=== PATIENT | female | born 1965 | race Caucasian/White ===

== ENCOUNTER 2017-03-12 10:06 | Emergency (ER) | payer BC, OTHER ==
[2017-03-12 10:21] VITALS: BP 131/79
--- NOTE | 2017-03-12 11:26 | EDM.PDOC ---
ED HPI GENERAL MEDICAL PROBLEM - General Chief Complaint: Lower Extremity Injury/Pain Stated Complaint: RT ANKLE INJURY Time Seen by Provider: 03/12/17 10:31 Source of Information: Reports: Patient History Limitations: Reports: No Limitations - History of Present Illness INITIAL COMMENTS - FREE TEXT/NARRATIVE: The patient inverted her ankle when stepping off of the curb. She also fell and landed on her back. She did not hit her head. She has no neck pain or back pain. She can mildly step on her foot. Onset: Sudden Duration: Minutes: Location: Reports: Lower Extremity, Right (ankle) Quality: Reports: Sharp Severity: Moderate Improves with: Reports: None Worsens with: Reports: Movement Context: Reports: Activity (Inverted her ankle stepping off of the curb) Associated Symptoms: Reports: No Other Symptoms Right Ankle Pain Score (Numeric/FACES): 9 - Related Data Allergies Allergy/AdvReac Type Severity Reaction Status Date / Time amoxicillin Allergy Hives Verified 03/12/17 10:15 Home Meds: Home Meds Hydrocodone/Acetaminophen [Hydrocodon-Acetaminophen 5-325] 1 - 2 each PO Q6HR PRN #20 tablet 03/12/17 [Rx] Past Medical History - Past Health History Medical/Surgical History: Denies Medical/Surgical History Gastrointestinal History: Reports: GERD - Past Surgical History Female Surgical History: Reports: Section, Oophorectomy Social & Family History - Tobacco Use Smoking Status *Q: Never Smoker Second Hand Smoke Exposure: No - Caffeine Use Caffeine Use: Reports: Soda - Recreational Drug Use Recreational Drug Use: No Review of Systems - Review of Systems Review Of Systems: See Below Constitutional: Reports: No Symptoms Eyes: Reports: No Symptoms Ears: Reports: No Symptoms Nose: Reports: No Symptoms Mouth/Throat: Reports: No Symptoms Respiratory: Reports: No Symptoms Cardiovascular: Reports: No Symptoms GI/Abdominal: Reports: No Symptoms Genitourinary: Reports: No Symptoms Musculoskeletal: Reports: Other (Right lateral ankle tenderness and edema.) ED EXAM, GENERAL - Physical Exam Exam: See Below Exam Limited By: No Limitations General Appearance: Alert, No Apparent Distress Ears: Normal External Exam Nose: Normal Inspection Head: Atraumatic, Normocephalic Neck: Normal Inspection Respiratory/Chest: No Respiratory Distress Extremities: Other (Pain upon palpation to the right lateral malleolus with moderate edema. Good sensation and pulses distally.) Course - Vital Signs Last Recorded V/S: Last Vital Signs Temp 98.7 F 03/12/17 10:17 Pulse 77 03/12/17 10:17 Resp 12 03/12/17 10:17 BP 131/79 03/12/17 10:17 Pulse Ox 99 03/12/17 10:17 - Re-Assessments/Exams Free Text/Narrative Re-Assessment/Exam: 03/12/17 11:34 Her x-ray shows an old injury but nothing acute. I will give her an shannan wrap and crutches and have her follow up with PT. Departure - Departure Time of Disposition: 11:35 Disposition: Home, Self-Care 01 Condition: good Clinical Impression: Right ankle sprain Qualifiers: Encounter type: initial encounter Involved ligament of ankle: unspecified ligament Qualified Code(s): S93.401A - Sprain of unspecified ligament of right ankle, initial encounter - Discharge Information Prescriptions: Hydrocodone/Acetaminophen [Hydrocodon-Acetaminophen 5-325] 1 - 2 each PO Q6HR PRN #20 tablet PRN Reason: Pain Referrals: José Jose MD [Primary Care Provider] - 1 Week Forms: ED Department Discharge Additional Instructions: Ice your ankle for 15 minutes every other hour while awake for 2 days. Elevate your ankle above your heart as much as you can for 2 days. Wear the shannan wrap for comfort. Use the crutches as needed for a few days. Follow up with physical therapy.
--- NOTE | 2017-03-12 11:31 | CR ---
Right ankle: Four views of the right ankle were obtained. Comparison: Previous right ankle exam of 07/06/13. Plantar spur is seen. This spur has slightly increased in size from prior exam. Ankle mortise is symmetric. Small calcification is seen off the lateral ankle most likely due to old injury. I do not see a definite acute fracture. Soft tissue swelling is seen. Impression: 1. No definite acute abnormality is seen. 2. Calcification off the lateral ankle most likely due to old injury. 3. Other incidental findings. Diagnostic code #2
== END 2017-03-12 12:05 | disposition home or self-care (01) ==
LOC: JD.ED 10:06
DX: S93.401A Sprain of unspecified ligament of right ankle, initial encounter (principal); K21.9 Gastro-esophageal reflux disease without esophagitis; Z88.1 Allergy status to other antibiotic agents; Z90.721 Acquired absence of ovaries, unilateral; X50.1XXA Overexertion from prolonged static or awkward postures, initial encounter
CPT/HCPCS: 73610-26-RT; 73610-RT; 99283; 99284

== ENCOUNTER 2017-11-05 09:08 | Emergency (ER) | payer BC, OTHER ==
[2017-11-05 09:17] VITALS: BP 159/85
[2017-11-05] MEDS ORDERED: Metoclopramide 10 MG/2 ML SDV IVPUSH ONE (09:26)
[2017-11-05] MEDS ORDERED: HYDROmorphone 0.5 MG/0.5 ML Syringe IVPUSH ONE (09:26)
[2017-11-05] MEDS ORDERED: LORazepam 2 MG/ML MDV IVPUSH ONE (09:28)
[2017-11-05] MEDS ORDERED: Ketorolac 30 MG/ML SDV IVPUSH SCH (09:30)
[2017-11-05] MEDS ORDERED: Sodium Chloride 0.9% 1,000 ML IV SCH (09:30)
--- NOTE | 2017-11-05 09:30 | EDM.PDOC ---
ED HPI GENERAL MEDICAL PROBLEM - General Chief Complaint: Chest Pain Stated Complaint: CHEST PAIN Time Seen by Provider: 11/05/17 09:25 Source of Information: Reports: Patient History Limitations: Reports: No Limitations - History of Present Illness INITIAL COMMENTS - FREE TEXT/NARRATIVE: 52-year-old female presents to the ED with acute onset of severe left precordial sharp stabbing chest pains. She cannot take a deep breath due to the severity of pain. She's been coughing proximal his blood for several days and particularly last night. This morning while at work she started to develop sharp stabbing chest pains left precordium that made her stop work and come to the ED. She is extremely apprehensive and tearful and holding clutching her left anterior chest. She has no known history of coronary disease. Is febrile on examination. She states cough is nonproductive. Coughing makes the pain much worse. Pain seems to be strongly pleuritic in nature. Denies any hemoptysis. No recent travel history or risk for DVT. O2 sats are 100% on room air. Onset: Today Onset Date: 11/05/17 Onset Time: 08:30 Duration: Minutes: Location: Reports: Chest (Left precordial upper chest.) Quality: Reports: Ache, Sharp, Stabbing Severity: Severe Improves with: Reports: None (Jessie 10) Worsens with: Reports: Other (Breathing deeply coughing), Movement Context: Denies: Activity, Exercise, Lifting, Sick Contact, Trauma, Other Associated Symptoms: Reports: Chest Pain, Cough, Fever/Chills, Loss of Appetite , Malaise, Shortness of Breath. 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: Other (see below) Middle Chest Pain Score (Numeric/FACES): 8 - Related Data Allergies Allergy/AdvReac Type Severity Reaction Status Date / Time amoxicillin Allergy Hives Verified 11/05/17 09:17 Home Meds: Home Meds Chlorpheniramine/HYDROcodone [Tussionex Pennkinetic] 5 ml PO Q12H PRN #60 ml [Rx] Levofloxacin [Levaquin] 500 mg PO DAILY #7 tab 11/05/17 [Rx] Past Medical History - Past Health History Medical/Surgical History: Denies Medical/Surgical History Gastrointestinal History: Reports: GERD - Past Surgical History Female Surgical History: Reports: Section, Oophorectomy Social & Family History - Tobacco Use Smoking Status *Q: Never Smoker Second Hand Smoke Exposure: No - Caffeine Use Caffeine Use: Reports: Soda - Recreational Drug Use Recreational Drug Use: No - Living Situation & Occupation Living situation: Reports: Occupation: Employed ED ROS GENERAL - Review of Systems Review Of Systems: See Below Constitutional: Reports: Fever, Malaise, Weakness, Fatigue, Decreased Appetite, Weight Loss, Other (Hoarse voice). Denies: Chills HEENT: Reports: Throat Pain (Sore throat) Respiratory: Reports: Shortness of Breath, Pleuritic Chest Pain, Cough. Denies : Wheezing, Sputum, Hemoptysis (Nonproductive) Cardiovascular: Reports: Chest Pain. Denies: Blood Pressure Problem (See history of present illness), Claudication, Dyspnea on Exertion, Edema, Lightheadedness, Orthopnea, Palpitations Endocrine: Reports: No Symptoms GI/Abdominal: Reports: No Symptoms : Reports: No Symptoms Musculoskeletal: Reports: No Symptoms Skin: Reports: No Symptoms Neurological: Reports: No Symptoms Psychiatric: Reports: No Symptoms Hematologic/Lymphatic: Reports: No Symptoms Immunologic: Reports: No Symptoms ED EXAM, GENERAL - Physical Exam Exam: See Below Exam Limited By: No Limitations General Appearance: Alert, WD/WN, Moderate Distress (Very apprehensive clutching her left anterior chest. Tearful.) Eye Exam: Bilateral Eye: Normal Inspection Ears: Normal TMs Throat/Mouth: Normal Inspection, Normal Lips, Normal Oropharynx Head: Atraumatic, Normocephalic Neck: Normal Inspection, Supple, Non-Tender, Full Range of Motion. No: Lymphadenopathy (R) Respiratory/Chest: Respiratory Distress, Other (Chest wall found to be very tender particularly fourth ribs bilaterally. Worse in the left 34 and 5 in the midclavicular line as compared to the right.). No: Decreased Breath Sounds, Crackles, Rales, Wheezing Cardiovascular: Normal Peripheral Pulses, Regular Rate, Rhythm, No Edema, No Murmur Peripheral Pulses: 3+: Posterior Tibial (L), Posterior Tibial (R), Dorsalis Pedis (L), Dorsalis Pedis (R) GI/Abdominal: Normal Bowel Sounds, Soft, Non-Tender, No Organomegaly Extremities: Normal Inspection, Normal Range of Motion, Non-Tender, No Pedal Edema Neurological: Alert, Oriented, CN II-XII Intact, Normal Cognition, Normal Gait Psychiatric: Anxious, Tearful Skin Exam: Warm, Dry, Intact, Normal Color, No Rash EKG INTERPRETATION EKG Date: 11/05/17 Time: 09:15 Rhythm: NSR Rate (Beats/Min): 85 [place]: Normal P-Wave: Present QRS: Other (There is a Q-wave in V1 and near Q waves V2 V3 suggestive of possible anteroseptal myocardial infarction.) ST-T: Normal QT: Normal EKG Interpretation Comments: Borderline ECG. Course - Vital Signs Last Recorded V/S: Last Vital Signs Temp 36.1 C 11/05/17 09:13 Pulse 95 11/05/17 09:13 Resp 19 11/05/17 09:13 BP 159/85 H 11/05/17 09:13 Pulse Ox 100 11/05/17 09:13 - Orders/Labs/Meds Orders: Active Orders 24 hr Category Date Time Status EKG Documentation Completion [RC] STAT Care 11/05/17 09:27 Active Ketorolac [Toradol] Med 11/05/17 09:30 Active 30 mg IVPUSH ONETIME Sodium Chloride 0.9% [Normal Saline] 1,000 ml Med 11/05/17 09:30 Active IV ASDIRECTED Medication Orders Sodium Chloride (Normal Saline) 1,000 mls @ 250 mls/hr IV ASDIRECTED EVER Last Admin: 11/05/17 09:48 Dose: 250 mls/hr Ketorolac Tromethamine (Toradol) 30 mg IVPUSH ONETIME EVER Last Admin: 11/05/17 09:47 Dose: 30 mg Labs: Laboratory Tests 11/05/17 11/05/17 Range/Units 09:20 09:20 WBC 12.39 H (3.98-10.04) K/mm3 RBC 5.51 H (3.98-5.22) M/mm3 Hgb 15.7 (11.2-15.7) gm/L Hct 46.8 H (34.1-44.9) % MCV 84.9 (79.4-94.8) fl MCH 28.5 (25.6-32.2) pg MCHC 33.5 (32.2-35.5) g/dl RDW Std Deviation 43.5 (36.4-46.3) fL Plt Count 418 H (182-369) K/mm3 MPV 10.2 (9.4-12.3) fl Neutrophils % (Manual) 80 H (40-60) % Band Neutrophils % 1 (0-10) % Lymphocytes % (Manual) 18 L (20-40) % Atypical Lymphs % 0 % Monocytes % (Manual) 1 L (2-10) % Eosinophils % (Manual) 0 L (0.7-5.8) % Basophils % (Manual) 0 L (0.1-1.2) Platelet Estimate Adequate RBC Morph Comment Normal Sodium 140 (136-145) mEq/L Potassium 3.8 (3.5-5.1) mEq/L Chloride 103 (98-107) mEq/L Carbon Dioxide 25 (21-32) mEq/L Anion Gap 15.8 H (5-15) BUN 11 (7-18) mg/dL Creatinine 0.9 (0.55-1.02) mg/dL Est Cr Clr Drug Dosing 62.83 mL/min Estimated GFR (MDRD) > 60 (>60) mL/min BUN/Creatinine Ratio 12.2 L (14-18) Glucose 88 (74-106) mg/dL Calcium 9.9 (8.5-10.1) mg/dL Total Bilirubin 0.6 (0.2-1.0) mg/dL AST 30 (15-37) U/L ALT 42 (14-59) U/L Alkaline Phosphatase 167 H (46-116) U/L Troponin I < 0.017 (0.00-0.056) ng/mL C-Reactive Protein 6.6 H* (<1.0) mg/dL Total Protein 8.7 H (6.4-8.2) g/dl Albumin 4.2 (3.4-5.0) g/dl Globulin 4.5 gm/dL Albumin/Globulin Ratio 0.9 L (1-2) Meds: Medications Generic Name Dose Route Start Last Admin Trade Name Freq PRN Reason Stop Dose Admin Sodium Chloride 1,000 mls @ 250 mls/hr 11/05/17 09:30 11/05/17 09:48 Normal Saline IV 250 mls/hr ASDIRECTED EVER Administration Ketorolac Tromethamine 30 mg 11/05/17 09:30 11/05/17 09:47 Toradol IVPUSH 30 mg ONETIME EVER Administration Discontinued Medications Generic Name Dose Route Start Last Admin Trade Name Arabella PRN Reason Stop Dose Admin Hydromorphone HCl 0.5 mg 11/05/17 09:26 11/05/17 09:47 Dilaudid IVPUSH 11/05/17 09:27 0.5 mg ONETIME ONE Administration Levofloxacin/Dextrose 500 mg/ 100 mls @ 100 mls/hr 11/05/17 11:08 11/05/17 11 :26 Premix IV 11/05/17 12:07 100 mls/hr ONETIME ONE Administration Lorazepam 0.5 mg 11/05/17 09:28 11/05/17 09:48 Ativan IVPUSH 11/05/17 09:29 0.5 mg ONETIME ONE Administration Methylprednisolone Sodium Succinate 125 mg 11/05/17 11:11 11/05/17 11:25 Solu-Medrol IVPUSH 11/05/17 11:12 125 mg ONETIME ONE Administration Metoclopramide HCl 7.5 mg 11/05/17 09:26 11/05/17 09:47 Reglan IVPUSH 11/05/17 09:27 7.5 mg ONETIME ONE Administration - Radiology Interpretation Free Text/Narrative:: 52-year-old female presents to the ED with acute onset of severe left precordial chest pain that is very strongly sharp and stabbing and pleuritic. She's been ill with upper respiratory tract infection for the last several days with paroxysmal nonproductive cough. Denies any hemoptysis. She has a very hoarse voice. She is slightly warm to palpation clinically. She is very tearful and clutching her left anterior chest. Pain is well localized to the anterior chest wall particularly third fourth and fifth ribs left precordial midline chest. Similarly mild pain on fourth and fifth ribs on the right side. Lungs are clear. Heart was sinus ECG shows no signs of ischemia. Plan 1 view chest x- ray. IV will be saline 250 mils per hour. Given Toradol 30 mg IV with Dilaudid 0.5 mg IV for pain relief. Reglan 7.5 mg IV for nausea relief and Ativan 0.5 mg IV for anxiety relief. Influenza screen also ordered. CBC differential troponin and CRP ordered as well. - Re-Assessments/Exams Free Text/Narrative Re-Assessment/Exam: 11/05/17 10:30: Chest x-ray done portably is within normal limits. There is very faint infiltrate in the right inferior lobe possible mild early pulmonary fibrosis pattern. Her pain is markedly improved. She's been able to relax and to sleep a little bit at this time. 11/05/17 11:00 White count is elevated at 12.39 with a 80% neutrophils and 1% band pattern. Hemoglobin is 15.7 with hematocrit of 46.8. Platelets are mildly elevated at 418,000. Sodium is 140 with a potassium of 3.8. Chloride was 103 with a bicarbonate 25. Anion gap is 15.8. B1 is 11 with a creatinine of 0.9. GFR is greater than 60. Glucose was 88. Calcium is 9.9. Liver function is normal. Alk phosphatase slightly elevated 167. Troponin I is less than 0.017 C- reactive protein was 6.6 suggesting an infective process. Influenza screen was negative. 11/05/17 11:12 clinically the patient still has some pleuritic left upper anterior chest pain with deep breathing. Her markers are suggestive of an underlying bronchitis as the x-ray does not show any pneumonia. I'm going to therefore give her Levaquin 500 mg IV. Also Solu-Medrol 125 mg IV for further relief of pleuritic chest pain. I'll be to discharge her home on Levaquin 500 mg once daily for another 7 days and Tussionex cough syrup 5 mils every 12 hours when necessary for cough relief. No will be given to excuse her from the work place for the next 3 days including today. Departure - Departure Time of Disposition: 12:16 Disposition: Home, Self-Care 01 Condition: Fair Clinical Impression: Pleurisy, Chest wall pain, Bronchitis Prescriptions: Chlorpheniramine/HYDROcodone [Tussionex Pennkinetic] 5 ml PO Q12H PRN #60 ml PRN Reason: cough relief Levofloxacin [Levaquin] 500 mg PO DAILY #7 tab Instructions: Chest Wall Pain, [id number], Pleurisy, [id number] Referrals: José Jose MD [Primary Care Provider] - Forms: ED Department Discharge, ED Return to Work/School Form Additional Instructions: Evaluation the emergency room today in regards to development of severe left upper anterior chest pain which was strongly pleuritic which means sharp and stabbing and worsened by breathing. This suggests inflammation of the chest wall and the inner lining called the pleura. Associated low-grade fever with upper respiratory tract infection symptoms for the last 3-4 days. Very hoarse voice. Associated sore throat from coughing so much. Chest x-ray was normal with no signs of pneumonia. However markers reveal an elevated white blood cell count suggesting infection and markers for infection were also elevated. You're therefore given the first dose of antibiotic Levaquin 500 milligrams intravenously in the ED for suspect bronchitis that has not yet turned into pneumonia. Treatment at home will be to continue anti-inflammatory and fever management with Motrin 600 mg every 6 hours as needed. Tussionex cough syrup 5 mils every 12 hours as needed for cough relief. Plan on taking it a good hour before bed as it takes a good hour to work. Antibiotic be Levaquin 500 milligrams once daily for another 7 days. Would be due at noon tomorrow. Off work today tomorrow and the next day due to current illness. - My Orders Last 24 Hours: My Active Orders 11/05/17 09:27 EKG Documentation Completion [RC] STAT 11/05/17 09:30 Ketorolac [Toradol] 30 mg IVPUSH ONETIME Sodium Chloride 0.9% [Normal Saline] 1,000 ml IV ASDIRECTED - Assessment/Plan Last 24 Hours: My Active Orders 11/05/17 09:27 EKG Documentation Completion [RC] STAT 11/05/17 09:30 Ketorolac [Toradol] 30 mg IVPUSH ONETIME Sodium Chloride 0.9% [Normal Saline] 1,000 ml IV ASDIRECTED
--- NOTE | 2017-11-05 10:28 | CR ---
Chest: Portable view of the chest was obtained. Comparison: Prior chest x-ray of 11/18/16. Heart size and mediastinum are normal. Lungs are clear. Bony structures are grossly intact. Impression: 1. Nothing acute is identified on portable chest x-ray. Diagnostic code #1
[2017-11-05] MEDS ORDERED: Levofloxacin/Dextrose 5%-Water 500 MG in Premix Bag 1 BAG IV ONE (11:08)
[2017-11-05] MEDS ORDERED: methylPREDNISolone Sodium Succinate 125 MG/2 ML SDV IVPUSH ONE (11:11)
== END 2017-11-05 12:34 | disposition home or self-care (01) ==
LOC: JD.ED 09:08
DX: R09.1 Pleurisy (principal); J40 Bronchitis, not specified as acute or chronic; Z88.1 Allergy status to other antibiotic agents
CPT/HCPCS: 36415; 71045; 80053; 84484; 85025; 86140; 87804; 93005; 96361; 96365; 96375; 99285; J1170; J1885; J1956; J2060; J2765; J2930; J7040; 93010

== ENCOUNTER 2019-06-17 07:31 | Emergency (ER) | payer BC, OTHER ==
[2019-06-17 07:40] VITALS: BP 138/81; PULSE 87
--- NOTE | 2019-06-17 07:51 | EDM.PDOC ---
ED HPI GENERAL MEDICAL PROBLEM - General Chief Complaint: Chest Pain Stated Complaint: RIGHT SIDE PAIN, CHEST PAIN Time Seen by Provider: 06/17/19 07:51 - History of Present Illness INITIAL COMMENTS - FREE TEXT/NARRATIVE: 54-year-old female presents with chest pain. This pain basically started in her right arm yesterday over 24 hours ago. It has migrated toward the central portion of her chest. She has minimal left arm discomfort. She's not had a cough. No prior history of coronary artery disease. She does not smoke. The pain is fairly constant but she has some sharp twinges on the right side. She also has some right leg discomfort. Middle Chest Pain Score (Numeric/FACES): 8 - Related Data Allergies Allergy/AdvReac Type Severity Reaction Status Date / Time amoxicillin Allergy Hives Verified 06/17/19 07:37 Home Meds: Home Meds Acetaminophen/HYDROcodone [Letona 325-5 MG] 1 - 2 tab PO Q6H PRN #20 tablet 06/17 [Rx] Past Medical History - Past Health History Medical/Surgical History: Denies Medical/Surgical History Gastrointestinal History: Reports: GERD - Past Surgical History Female Surgical History: Reports: Section, Oophorectomy Social & Family History - Tobacco Use Smoking Status *Q: Never Smoker - Caffeine Use Caffeine Use: Reports: Soda - Recreational Drug Use Recreational Drug Use: No - Living Situation & Occupation Living situation: Reports: Occupation: Employed ED ROS GENERAL - Review of Systems Review Of Systems: See Below Constitutional: Reports: No Symptoms HEENT: Reports: No Symptoms Respiratory: Reports: Pleuritic Chest Pain. Denies: Shortness of Breath, Cough , Sputum, Hemoptysis Cardiovascular: Reports: Chest Pain. Denies: Dyspnea on Exertion, Edema, Lightheadedness Endocrine: Reports: No Symptoms GI/Abdominal: Reports: No Symptoms Musculoskeletal: Reports: Arm Pain, Leg Pain, Other (And chest wall pain) Skin: Reports: No Symptoms Neurological: Denies: Confusion, Headache Psychiatric: Reports: Anxiety Hematologic/Lymphatic: Reports: No Symptoms Immunologic: Reports: No Symptoms ED EXAM, GENERAL - Physical Exam Exam: See Below Exam Limited By: No Limitations General Appearance: Anxious Head: Atraumatic, Normocephalic Neck: Normal Inspection, Supple, Non-Tender, Full Range of Motion. No: Lymphadenopathy (L), Lymphadenopathy (R) Respiratory/Chest: No Respiratory Distress, Lungs Clear, Other (She has significant chest wall discomfort much worse on the right compared to left the way to the stethoscope causes her to flinch severely.). No: Chest Non-Tender Cardiovascular: Regular Rate, Rhythm, No Edema, No Murmur, Other (Her chest wall is very tender just awaited the stethoscope causes her flinch and rear back.) GI/Abdominal: Normal Bowel Sounds, Soft, Non-Tender Back Exam: Normal Inspection, Other (Palpation the upper back is tender worse on the right side no midline or vertebral tenderness). No: CVA Tenderness (L), CVA Tenderness (R) Extremities: Other (Palpation of the right upper extremity is exquisitely tender normal pulses normal sensation is palpation of the soft tissue causes severe discomfort) Neurological: Alert, Oriented, Normal Cognition, Other (She is a little anxious) EKG INTERPRETATION EKG Date: 06/17/19 Rhythm: NSR [place]: Normal P-Wave: Present QRS: Other (Normal QRSs with the exception of possible cues more likely late transition with no upward R wave in V1 V2 or V3 prominent V4 [address]-T: Other (Nonspecific nondiagnostic elevation in lead 3) Comparison: No Change (No significant change from November 05, 2017) EKG Interpretation Comments: Borderline EKG Course - Vital Signs Last Recorded V/S: Last Vital Signs Temp 36.1 C 06/17/19 07:38 Pulse 87 06/17/19 07:38 Resp 16 06/17/19 07:38 BP 138/81 06/17/19 07:38 Pulse Ox 100 06/17/19 07:38 - Orders/Labs/Meds Orders: Active Orders 24 hr Category Date Time Status EKG Documentation Completion [RC] STAT Care 06/17/19 08:02 Active Chest 1V Frontal [CR] Stat Exams 06/17/19 08:15 Taken Labs: Laboratory Tests 06/17/19 06/17/19 06/17/19 Range/Units 08:18 08:18 08:18 WBC 4.75 (3.98-10.04) K/mm3 RBC 5.05 (3.98-5.22) M/mm3 Hgb 14.0 D (11.2-15.7) gm/L Hct 42.6 (34.1-44.9) % MCV 84.4 (79.4-94.8) fl MCH 27.7 (25.6-32.2) pg MCHC 32.9 (32.2-35.5) g/dl RDW Std Deviation 43.0 (36.4-46.3) fL Plt Count 352 (182-369) K/mm3 MPV 10.5 (9.4-12.3) fl Neutrophils % (Manual) 56 (40-60) % Band Neutrophils % 0 (0-10) % Lymphocytes % (Manual) 35 (20-40) % Atypical Lymphs % 0 % Monocytes % (Manual) 8 (2-10) % Eosinophils % (Manual) 1 (0.7-5.8) % Basophils % (Manual) 0 L (0.1-1.2) Platelet Estimate Adequate RBC Morph Comment Normal D-Dimer, Quantitative 0.20 (0.19-0.50) mg/L Sodium 142 (136-145) mEq/L Potassium 3.8 (3.5-5.1) mEq/L Chloride 107 (98-107) mEq/L Carbon Dioxide 24 (21-32) mEq/L Anion Gap 14.8 (5-15) BUN 15 (7-18) mg/dL Creatinine 0.9 (0.55-1.02) mg/dL Est Cr Clr Drug Dosing 64.30 mL/min Estimated GFR (MDRD) > 60 (>60) mL/min BUN/Creatinine Ratio 16.7 (14-18) Glucose 75 (74-106) mg/dL Calcium 9.8 (8.5-10.1) mg/dL Total Bilirubin 0.6 (0.2-1.0) mg/dL AST 9 L (15-37) U/L ALT 22 (14-59) U/L Alkaline Phosphatase 142 H (46-116) U/L Creatine Kinase (26-192) U/L Troponin I < 0.017 (0.00-0.056) ng/mL C-Reactive Protein (<1.0) mg/dL Total Protein 7.1 (6.4-8.2) g/dl Albumin 3.9 (3.4-5.0) g/dl Globulin 3.2 gm/dL Albumin/Globulin Ratio 1.2 (1-2) 06/17/19 06/17/19 Range/Units 08:18 08:18 WBC (3.98-10.04) K/mm3 RBC (3.98-5.22) M/mm3 Hgb (11.2-15.7) gm/L Hct (34.1-44.9) % MCV (79.4-94.8) fl MCH (25.6-32.2) pg MCHC (32.2-35.5) g/dl RDW Std Deviation (36.4-46.3) fL Plt Count (182-369) K/mm3 MPV (9.4-12.3) fl Neutrophils % (Manual) (40-60) % Band Neutrophils % (0-10) % Lymphocytes % (Manual) (20-40) % Atypical Lymphs % % Monocytes % (Manual) (2-10) % Eosinophils % (Manual) (0.7-5.8) % Basophils % (Manual) (0.1-1.2) Platelet Estimate RBC Morph Comment D-Dimer, Quantitative (0.19-0.50) mg/L Sodium (136-145) mEq/L Potassium (3.5-5.1) mEq/L Chloride (98-107) mEq/L Carbon Dioxide (21-32) mEq/L Anion Gap (5-15) BUN (7-18) mg/dL Creatinine (0.55-1.02) mg/dL Est Cr Clr Drug Dosing mL/min Estimated GFR (MDRD) (>60) mL/min BUN/Creatinine Ratio (14-18) Glucose (74-106) mg/dL Calcium (8.5-10.1) mg/dL Total Bilirubin (0.2-1.0) mg/dL AST (15-37) U/L ALT (14-59) U/L Alkaline Phosphatase (46-116) U/L Creatine Kinase 95 (26-192) U/L Troponin I (0.00-0.056) ng/mL C-Reactive Protein 0.3 (<1.0) mg/dL Total Protein (6.4-8.2) g/dl Albumin (3.4-5.0) g/dl Globulin gm/dL Albumin/Globulin Ratio (1-2) Meds: Medications Discontinued Medications Generic Name Dose Route Start Last Admin Trade Name Freq PRN Reason Stop Dose Admin Fentanyl 50 mcg 06/17/19 08:04 06/17/19 08:19 Sublimaze IVPUSH 06/17/19 08:05 50 mcg ONETIME ONE Administration Lorazepam 1 mg 06/17/19 08:38 06/17/19 09:01 Ativan IVPUSH 06/17/19 08:39 1 mg ONETIME ONE Administration - Re-Assessments/Exams Free Text/Narrative Re-Assessment/Exam: 06/17/19 08:52 Fentanyl 50 g did not help we'll try a milligram of Ativan. Chest x-ray shows no acute cardiopulmonary changes no obvious musculoskeletal abnormalities. 06/17/19 12:30 A she did better after receiving some Ativan she still hurts but much better than before. The cause of her myalgias is uncertain laboratory evaluation is essentially unremarkable CPKs normal troponin normal d-dimer normal. She has a some multiple extremities and her chest and on exam is hyperesthetic with touching and even using the stethoscope. I did discuss the patient's case with Dr. Souza will discharge with a few hydrocodone and she will be seen in the office on Friday. Departure - Departure Time of Disposition: 12:32 Disposition: Home, Self-Care 01 Clinical Impression: Myalgia Prescriptions: Acetaminophen/HYDROcodone [Letona 325-5 MG] 1 - 2 tab PO Q6H PRN #20 tablet PRN Reason: Pain Referrals: José Jose MD [Primary Care Provider] - Forms: ED Department Discharge Additional Instructions: Return to emergency room with any questions problems or worsening symptoms. Follow-up with Dr. Souza on Friday as we discussed. Use the pain medication as needed for the discomfort. Try ibuprofen or Aleve and see if this helps - My Orders Last 24 Hours: My Active Orders 06/17/19 08:02 EKG Documentation Completion [RC] STAT 06/17/19 08:15 Chest 1V Frontal [CR] Stat - Assessment/Plan Last 24 Hours: My Active Orders 06/17/19 08:02 EKG Documentation Completion [RC] STAT 06/17/19 08:15 Chest 1V Frontal [CR] Stat
[2019-06-17] MEDS ORDERED: fentaNYL 100 MCG/2 ML SDV IVPUSH ONE (08:04)
[2019-06-17] MEDS ORDERED: LORazepam 2 MG/ML SDV IVPUSH ONE (08:38)
--- NOTE | 2019-06-21 06:39 | CR ---
Chest: Portable view of the chest was obtained. Comparison: Prior chest x-ray of 11/05/17. Heart size and mediastinum are normal. Lungs are clear. Bony structures are grossly intact. Impression: 1. Nothing acute is appreciated on portable chest x-ray. Diagnostic code #1
== END 2019-06-17 12:45 | disposition home or self-care (01) ==
LOC: JD.ED 07:31
DX: M79.10 Myalgia, unspecified site (principal); R07.89 Other chest pain; Z88.1 Allergy status to other antibiotic agents
CPT/HCPCS: 36415; 71045; 80053; 82550; 84484; 85007; 85027; 85379; 86140; 93005; 96374; 96375; 99285; J2060; J3010

== ENCOUNTER 2019-06-18 07:50 | Emergency (ER) | payer BC ==
[2019-06-18 08:03] VITALS: BP 114/98; PULSE 103
[2019-06-18] MEDS ORDERED: fentaNYL 100 MCG/2 ML SDV IVPUSH ONE (08:04)
[2019-06-18] MEDS ORDERED: fentaNYL 100 MCG/2 ML SDV ONE (08:06)
[2019-06-18] MEDS ORDERED: Sodium Chloride 0.9% 10 ML Syringe FLUSH PRN (08:07)
[2019-06-18] MEDS ORDERED: Iopamidol 755 Mg/ML 100 ML Bottle IVPUSH ONE (08:07)
[2019-06-18] MEDS ORDERED: Sodium Chloride 0.9% 100 ML IV SCH (08:15)
[2019-06-18] MEDS ORDERED: LORazepam 2 MG/ML SDV ONE (08:16)
--- NOTE | 2019-06-18 08:42 | EDM.PDOC ---
ED HPI GENERAL MEDICAL PROBLEM - General Chief Complaint: Chest Pain Stated Complaint: [facility] Time Seen by Provider: 06/18/19 07:50 - History of Present Illness INITIAL COMMENTS - FREE TEXT/NARRATIVE: 83-year-old female presents emergency room with arm chest pain. This is an atypical chest pain. The pain seems to be in the external musculature of the chest. Left forearm right proximal thigh and to a lesser degree left arm she does not describe chest pressure and her pain is not substernal is not associated with shortness of breath she is exquisitely tender when she has this even the weighted stethoscope been on her chest causes severe stress and anxiety. This started a couple of days ago I actually saw yesterday here for this really didn't have a solid diagnosis with her discussed the situation with her regular physician, Dr. Souza, and arranged Friday follow- up. Because this isn't making sense and 54-year-old woman with hyperesthetic responses to the external musculature on her arms and chest. She's had no fecal history of fevers or chills laboratory workup has been unremarkable no inflammatory markers elevated CPKs normal. Right Chest Pain Score (Numeric/FACES): 10 - Related Data Allergies Allergy/AdvReac Type Severity Reaction Status Date / Time amoxicillin Allergy Hives Verified 06/18/19 07:54 Home Meds: Home Meds Acetaminophen/HYDROcodone [[place] 325-5 MG] 1 - 2 tab PO Q6H PRN #20 tablet 06/17 [Rx] Meloxicam 15 mg PO Q24H #10 tablet 06/18/19 [Rx] Past Medical History - Past Health History Medical/Surgical History: Denies Medical/Surgical History Gastrointestinal History: Reports: GERD - Past Surgical History Female Surgical History: Reports: Section, Oophorectomy Social & Family History - Caffeine Use Caffeine Use: Reports: Soda - Living Situation & Occupation Living situation: Reports: Occupation: Employed ED ROS GENERAL - Review of Systems Review Of Systems: See Below Constitutional: Reports: No Symptoms HEENT: Reports: No Symptoms Respiratory: Reports: No Symptoms Cardiovascular: Reports: Chest Pain (External chest wall pain) Endocrine: Reports: No Symptoms GI/Abdominal: Denies: Constipation, Distension, Nausea, Vomiting Musculoskeletal: Reports: No Symptoms Skin: Reports: No Symptoms Neurological: Reports: No Symptoms Psychiatric: Reports: Anxiety (Think this is acute pain related). Denies: No Symptoms Hematologic/Lymphatic: Reports: No Symptoms ED EXAM, GENERAL - Physical Exam Exam: See Below Exam Limited By: Other (Patient is to sore to cooperate with the course of exam) General Appearance: Moderate Distress (From the discomfort) Eye Exam: Bilateral Eye: Normal Inspection Nose: Normal Inspection Throat/Mouth: Normal Inspection, Normal Lips, Normal Teeth, Normal Gums, Normal Oropharynx, Normal Voice, No Airway Compromise Head: Atraumatic, Normocephalic Neck: Normal Inspection, Supple, Non-Tender, Full Range of Motion. No: Lymphadenopathy (L), Lymphadenopathy (R) Respiratory/Chest: No Respiratory Distress, Lungs Clear, Normal Breath Sounds Cardiovascular: Regular Rate, Rhythm, No Edema, No Murmur Peripheral Pulses: 0: Posterior Tibial (L) GI/Abdominal: Normal Bowel Sounds, Soft, Non-Tender Back Exam: Normal Inspection. No: CVA Tenderness (L), CVA Tenderness (R) Extremities: Normal Inspection, No Pedal Edema Course - Vital Signs Last Recorded V/S: Last Vital Signs Temp 36.9 C 06/18/19 07:54 Pulse 103 H 06/18/19 07:54 Resp 24 H 06/18/19 07:54 BP 114/98 H 06/18/19 07:54 Pulse Ox 100 06/18/19 07:54 - Orders/Labs/Meds Orders: Active Orders 24 hr Category Date Time Status Ang Chest [CT] Stat Exams 06/18/19 08:03 Taken Sodium Chloride 0.9% [Normal Saline] 100 ml Med 06/18/19 08:15 Active IV ASDIRECTED Sodium Chloride 0.9% [Saline Flush] Med 06/18/19 08:07 Active 10 ml FLUSH ONETIME PRN Medication Orders Sodium Chloride (Normal Saline) 100 mls @ 75 mls/hr IV ASDIRECTED EVER Last Admin: 06/18/19 08:37 Dose: 75 mls/hr Sodium Chloride (Saline Flush) 10 ml FLUSH ONETIME PRN PRN Reason: IV FLUSH Last Admin: 06/18/19 08:37 Dose: 10 ml Labs: Laboratory Tests 06/18/19 06/18/19 06/18/19 Range/Units 08:14 08:14 08:14 WBC 4.78 (3.98-10.04) K/mm3 RBC 5.05 (3.98-5.22) M/mm3 Hgb 14.1 (11.2-15.7) gm/L Hct 42.9 (34.1-44.9) % MCV 85.0 (79.4-94.8) fl MCH 27.9 (25.6-32.2) pg MCHC 32.9 (32.2-35.5) g/dl RDW Std Deviation 43.2 (36.4-46.3) fL Plt Count 327 (182-369) K/mm3 MPV 10.8 (9.4-12.3) fl Neutrophils % (Manual) 72 H (40-60) % Band Neutrophils % 0 (0-10) % Lymphocytes % (Manual) 24 (20-40) % Atypical Lymphs % 0 % Immat Monocytes % (Man) 0 Monocytes % (Manual) 2 (2-10) % Eosinophils % (Manual) 2 (0.7-5.8) % Basophils % (Manual) 0 L (0.1-1.2) Metamyelocytes % 0 Myelocytes % 0 Promyelocytes % 0 Blast Cells % 0 Plasma Cell % (Manual) 0 Nucleated RBCs 0.0 % Platelet Estimate Adequate RBC Morph Comment Normal ESR 11 (0-20) mm/hr Sodium 139 (136-145) mEq/L Potassium 3.7 (3.5-5.1) mEq/L Chloride 106 (98-107) mEq/L Carbon Dioxide 20 L (21-32) mEq/L Anion Gap 16.7 H (5-15) BUN 15 (7-18) mg/dL Creatinine 1.1 H (0.55-1.02) mg/dL Est Cr Clr Drug Dosing 48.36 mL/min Estimated GFR (MDRD) 52 (>60) mL/min BUN/Creatinine Ratio 13.6 L (14-18) Glucose 146 H (74-106) mg/dL Calcium 9.8 (8.5-10.1) mg/dL Magnesium (1.8-2.4) mg/dl Total Bilirubin 0.7 (0.2-1.0) mg/dL AST 12 L (15-37) U/L ALT 20 (14-59) U/L Alkaline Phosphatase 140 H (46-116) U/L Creatine Kinase (26-192) U/L Troponin I < 0.017 (0.00-0.056) ng/mL C-Reactive Protein < 0.2 (<1.0) mg/dL Total Protein 7.2 (6.4-8.2) g/dl Albumin 3.8 (3.4-5.0) g/dl Globulin 3.4 gm/dL Albumin/Globulin Ratio 1.1 (1-2) 06/18/19 06/18/19 06/18/19 Range/Units 08:14 08:14 12:30 WBC (3.98-10.04) K/mm3 RBC (3.98-5.22) M/mm3 Hgb (11.2-15.7) gm/L Hct (34.1-44.9) % MCV (79.4-94.8) fl MCH (25.6-32.2) pg MCHC (32.2-35.5) g/dl RDW Std Deviation (36.4-46.3) fL Plt Count (182-369) K/mm3 MPV (9.4-12.3) fl Neutrophils % (Manual) (40-60) % Band Neutrophils % (0-10) % Lymphocytes % (Manual) (20-40) % Atypical Lymphs % % Immat Monocytes % (Man) Monocytes % (Manual) (2-10) % Eosinophils % (Manual) (0.7-5.8) % Basophils % (Manual) (0.1-1.2) Metamyelocytes % Myelocytes % Promyelocytes % Blast Cells % Plasma Cell % (Manual) Nucleated RBCs % Platelet Estimate RBC Morph Comment ESR (0-20) mm/hr Sodium (136-145) mEq/L Potassium (3.5-5.1) mEq/L Chloride (98-107) mEq/L Carbon Dioxide (21-32) mEq/L Anion Gap (5-15) BUN (7-18) mg/dL Creatinine (0.55-1.02) mg/dL Est Cr Clr Drug Dosing mL/min Estimated GFR (MDRD) (>60) mL/min BUN/Creatinine Ratio (14-18) Glucose (74-106) mg/dL Calcium (8.5-10.1) mg/dL Magnesium 2.0 (1.8-2.4) mg/dl Total Bilirubin (0.2-1.0) mg/dL AST (15-37) U/L ALT (14-59) U/L Alkaline Phosphatase (46-116) U/L Creatine Kinase 72 (26-192) U/L Troponin I < 0.017 (0.00-0.056) ng/mL C-Reactive Protein (<1.0) mg/dL Total Protein (6.4-8.2) g/dl Albumin (3.4-5.0) g/dl Globulin gm/dL Albumin/Globulin Ratio (1-2) Meds: Medications Generic Name Dose Route Start Last Admin Trade Name Freq PRN Reason Stop Dose Admin Sodium Chloride 100 mls @ 75 mls/hr 06/18/19 08:15 06/18/19 08:37 Normal Saline IV 75 mls/hr ASDIRECTED EVER Administration Sodium Chloride 10 ml 06/18/19 08:07 06/18/19 08:37 Saline Flush FLUSH 10 ml ONETIME PRN Administration IV FLUSH Discontinued Medications Generic Name Dose Route Start Last Admin Trade Name Freq PRN Reason Stop Dose Admin Fentanyl 100 mcg 06/18/19 08:04 06/18/19 08:12 Sublimaze IVPUSH 06/18/19 08:05 100 mcg ONETIME ONE Administration Fentanyl Confirm 06/18/19 08:06 06/18/19 08:13 Sublimaze Administered 06/18/19 08:07 Not Given Dose 100 mcg .ROUTE .STK-MED ONE Lactated Ringer's 1,000 mls @ 999 mls/hr 06/18/19 10:24 06/18/19 10:31 Ringers, Lactated IV 06/18/19 11:24 999 mls/hr .BOLUS ONE Administration Lactated Ringer's 1,000 mls @ 999 mls/hr 06/18/19 11:46 06/18/19 12:03 Ringers, Lactated IV 06/18/19 12:46 999 mls/hr .BOLUS ONE Administration Iopamidol 100 ml 06/18/19 08:07 06/18/19 08:36 Isovue-370 (76%) IVPUSH 06/18/19 08:08 100 ml ONETIME ONE Administration Ketorolac Tromethamine 15 mg 06/18/19 09:30 06/18/19 09:57 Toradol IVPUSH 06/18/19 09:31 15 mg ONETIME ONE Administration Lorazepam Confirm 06/18/19 08:16 06/18/19 08:44 Ativan Administered 06/18/19 08:17 Not Given Dose 2 mg .ROUTE .STK-MED ONE Lorazepam 1 mg 06/18/19 08:43 06/18/19 08:45 Ativan IVPUSH 06/18/19 08:44 1 mg ONETIME ONE Administration - Re-Assessments/Exams Free Text/Narrative Re-Assessment/Exam: 06/18/19 11:47 Labs reviewed CTA unremarkable she is a little dry magnesium okay she received a liter of LR this seems to help a little bit given a second liter check a second troponin and she still having some vague chest discomfort she still has quite a bit of discomfort with palpation over the soft tissue over the anterior chest. Palpation of the near the muscles around the sternum cause the patient to flinch back and out of the way. 06/18/19 13:28 Patient received 2 L of fluid second troponin is negative patient thinks she can give this a try at home. Earlier in the day had a chance to discuss this with Dr. Cifuentes, hotel services sales representative at [employer] in [place], his recommendation was to start her on meloxicam 15 mg daily if that doesn't get her some long-term relief try gabapentin and possibly steroids. The patient has an appointment with Dr. Souza, this next week. Departure - Departure Time of Disposition: 13:34 Disposition: Home, Self-Care 01 Clinical Impression: Myalgia - Discharge Information Prescriptions: Meloxicam 15 mg PO Q24H #10 tablet Referrals: José Jose MD [Primary Care Provider] - Forms: ED Department Discharge Additional Instructions: Return to the emergency room with any questions problems worsening symptoms. Follow-up with Dr. Souza as scheduled. Start the meloxicam take one daily. Continue using her pain medication given to you yesterday and use as needed. - My Orders Last 24 Hours: My Active Orders 06/18/19 08:03 Ang Chest [CT] Stat 06/18/19 08:07 Sodium Chloride 0.9% [Saline Flush] 10 ml FLUSH ONETIME PRN 06/18/19 08:15 Sodium Chloride 0.9% [Normal Saline] 100 ml IV ASDIRECTED - Assessment/Plan Last 24 Hours: My Active Orders 06/18/19 08:03 Ang Chest [CT] Stat 06/18/19 08:07 Sodium Chloride 0.9% [Saline Flush] 10 ml FLUSH ONETIME PRN 06/18/19 08:15 Sodium Chloride 0.9% [Normal Saline] 100 ml IV ASDIRECTED
[2019-06-18] MEDS ORDERED: LORazepam 2 MG/ML SDV IVPUSH ONE (08:43)
[2019-06-18] MEDS ORDERED: Ketorolac 15 MG/ML SDV IVPUSH ONE (09:30)
[2019-06-18] MEDS ORDERED: Lactated Ringers 1,000 ML IV ONE ×2 (10:24→11:46)
--- NOTE | 2019-06-21 08:44 | CT ---
CT chest Technique: Multiple axial sections through the chest were obtained. Intravenous contrast was utilized. Study has been performed as a pulmonary angiogram protocol. Comparison: Prior CT chest exam of 11/18/16. Findings: Pulmonary arteries are well opacified. No filling defects are seen to indicate pulmonary embolism. Mediastinum and hilar region show no adenopathy. No axillary adenopathy is seen. No pericardial thickening is seen. Visualized upper abdominal structures show no discrete abnormality. Lungs show no acute parenchymal change. No pleural effusions are seen. No pneumothorax is seen. Bone window settings show no acute osseous abnormality. Mild degenerative change is scattered within the spine. Impression: 1. No findings of pulmonary embolism. 2. Other incidental findings. Nothing acute is seen on CT study of the chest. Diagnostic code #2 I agree with preliminary report from [facility], finalized on 06/18/19, 10:03 AM Central Time
== END 2019-06-18 14:17 | disposition home or self-care (01) ==
LOC: JD.ED 07:50
DX: M79.10 Myalgia, unspecified site (principal); Z88.1 Allergy status to other antibiotic agents
CPT/HCPCS: 36415; 71275; 80053; 82550; 83735; 84484; 85007; 85027; 85652; 86140; 96361; 96374; 96375; 99285; J1885; J2060; J3010; J7030; J7120; Q9967

== ENCOUNTER 2019-06-28 14:36 | Emergency (ER) | payer BC ==
[2019-06-28 14:50] VITALS: BP 134/108; PULSE 85
[2019-06-28] MEDS ORDERED: LORazepam 2 MG/ML SDV IVPUSH ONE ×2 (15:18→15:24)
[2019-06-28] MEDS ORDERED: Ketorolac 30 MG/ML SDV IVPUSH ONE (15:18)
[2019-06-28] MEDS ORDERED: Sodium Chloride 0.9% 1,000 ML IV ONE (15:18)
[2019-06-28] MEDS ORDERED: HYDROmorphone 0.5 MG/0.5 ML Syringe IVPUSH ONE (15:23)
[2019-06-28] MEDS ORDERED: Aspirin 81 MG Tab.Chew PO ONE (15:25)
--- NOTE | 2019-06-28 15:34 | EDM.PDOC ---
ED HPI GENERAL MEDICAL PROBLEM - General Chief Complaint: Chest Pain Stated Complaint: SOB Time Seen by Provider: 06/28/19 14:58 Source of Information: Reports: Patient History Limitations: Reports: Uncooperative - History of Present Illness INITIAL COMMENTS - FREE TEXT/NARRATIVE: Patient is a 54-year-old female who presents to the ED complaining of left anterior/lateral chest pain that started this morning approximately 9:00. Pain is sharp in nature worsened with palpation, taking deep breath, and movement. She was mildly diaphoretic with onset. Feels like she cannot take a deep breath since the pain is worse. She has noticed some n/t to her lips and fingertips with breathing fast that has since improved with admission to the ED. She's been evaluated twice in the ED department once here and once also at [facility] with diagnosis of musculoskeletal pain. Last evaluated in the ER on the in [place] and prescribed a muscle relaxer to which she has been taking and has since ran out. She also was seen by her PCP and placed on clonazepam for anxiety. She denies any vision changes, headache, back pain, abdominal pain, cough, hemoptysis, pain or swelling to her lower extremities, fever, and/or any additional complaints. 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: - Infectious Disease History Infectious Disease History: Reports: Chicken Pox, Measles, Mumps - Past Surgical History GI Surgical History: Reports: Appendectomy Female Surgical History: Reports: Section, Oophorectomy Social & Family History - Family History Family Medical History: Noncontributory - Tobacco Use Smoking Status *Q: Never Smoker Second Hand Smoke Exposure: No - Caffeine Use Caffeine Use: Reports: Soda - Recreational Drug Use Recreational Drug Use: No - Living Situation & Occupation Living situation: Reports: Occupation: Employed ED ROS GENERAL - Review of Systems Review Of Systems: See Below Constitutional: Denies: Fever, Chills, Malaise, Weakness, Fatigue, Night Sweats , Decreased Appetite Respiratory: Reports: Shortness of Breath, Pleuritic Chest Pain. Denies: Wheezing, Cough, Sputum, Hemoptysis Cardiovascular: Reports: Chest Pain, Palpitations. Denies: Blood Pressure Problem, Dyspnea on Exertion, Lightheadedness, Orthopnea, PND, Syncope GI/Abdominal: Reports: No Symptoms : Reports: No Symptoms Musculoskeletal: Reports: No Symptoms Neurological: Reports: No Symptoms Psychiatric: Reports: Anxiety ED EXAM, GENERAL - Physical Exam Exam: See Below Exam Limited By: No Limitations General Appearance: Alert, WD/WN, Anxious, Moderate Distress Eye Exam: Bilateral Eye: Normal Inspection Ears: Hearing Grossly Normal Nose: Normal Inspection Throat/Mouth: Normal Inspection, Normal Oropharynx, Normal Voice, No Airway Compromise Head: Atraumatic, Normocephalic Neck: Normal Inspection, Supple, Non-Tender, Full Range of Motion Respiratory/Chest: No Respiratory Distress, Lungs Clear, Normal Breath Sounds, No Accessory Muscle Use, Other (Tenderness along the sternal border and along the left lateral chest increased with palpation. No bony abnormalities, ecchymosis, swelling, rash present.) Cardiovascular: Normal Peripheral Pulses, Regular Rate, Rhythm, No Murmur Peripheral Pulses: 2+: Radial (L), Radial (R) GI/Abdominal: Normal Bowel Sounds, Soft, Non-Tender, No Organomegaly, No Distention Back Exam: Normal Inspection, Full Range of Motion. No: CVA Tenderness (L), CVA Tenderness (R) Extremities: Normal Inspection, Normal Range of Motion, Non-Tender, No Pedal Edema Neurological: Alert, Oriented, CN II-XII Intact, Normal Cognition, No Motor/ Sensory Deficits Psychiatric: Normal Affect, Normal Mood Skin Exam: Warm, Dry, Intact, Normal Color Course - Vital Signs Last Recorded V/S: Last Vital Signs Temp 97.2 F 06/28/19 14:48 Pulse 85 06/28/19 14:48 Resp 23 H 06/28/19 14:48 BP 134/108 H 06/28/19 14:48 Pulse Ox 100 06/28/19 14:48 - Orders/Labs/Meds Orders: Active Orders 24 hr Category Date Time Status EKG 12 Lead [EKG Documentation Completion] [RC] STAT Care 06/28/19 15:30 Active Labs: Laboratory Tests 06/28/19 06/28/19 06/28/19 Range/Units 15:00 15:00 15:00 WBC 6.64 (3.98-10.04) K/mm3 RBC 4.76 (3.98-5.22) M/mm3 Hgb 13.4 (11.2-15.7) gm/dl Hct 39.5 (34.1-44.9) % MCV 83.0 (79.4-94.8) fl MCH 28.2 (25.6-32.2) pg MCHC 33.9 (32.2-35.5) g/dl RDW Std Deviation 41.0 (36.4-46.3) fL Plt Count 340 (182-369) K/mm3 MPV 11.0 (9.4-12.3) fl Neutrophils % (Manual) 70 H (40-60) % Band Neutrophils % 0 (0-10) % Lymphocytes % (Manual) 26 (20-40) % Atypical Lymphs % 0 % Monocytes % (Manual) 4 (2-10) % Eosinophils % (Manual) 0 L (0.7-5.8) % Basophils % (Manual) 0 L (0.1-1.2) Platelet Estimate Adequate RBC Morph Comment Normal PT 10.8 (9.7-12.0) SECONDS INR 0.99 APTT 24 (22-31) SECONDS D-Dimer, Quantitative 0.33 (0.19-0.50) mg/L Sodium 142 (136-145) mEq/L Potassium 3.7 (3.5-5.1) mEq/L Chloride 108 H (98-107) mEq/L Carbon Dioxide 22 (21-32) mEq/L Anion Gap 15.7 H (5-15) BUN 20 H (7-18) mg/dL Creatinine 0.8 (0.55-1.02) mg/dL Est Cr Clr Drug Dosing 66.50 mL/min Estimated GFR (MDRD) > 60 (>60) mL/min BUN/Creatinine Ratio 25.0 H (14-18) Glucose 100 (74-106) mg/dL Calcium 10.2 H (8.5-10.1) mg/dL Total Bilirubin 0.5 (0.2-1.0) mg/dL AST 16 (15-37) U/L ALT 27 (14-59) U/L Alkaline Phosphatase 144 H (46-116) U/L Troponin I < 0.017 (0.00-0.056) ng/mL C-Reactive Protein 0.2 (<1.0) mg/dL Total Protein 7.4 (6.4-8.2) g/dl Albumin 4.0 (3.4-5.0) g/dl Globulin 3.4 gm/dL Albumin/Globulin Ratio 1.2 (1-2) Meds: Medications Discontinued Medications Generic Name Dose Route Start Last Admin Trade Name Arabella PRN Reason Stop Dose Admin Aspirin 324 mg 06/28/19 15:25 06/28/19 15:33 Aspirin PO 06/28/19 15:26 324 mg ONETIME ONE Administration Hydromorphone HCl 0.5 mg 06/28/19 15:23 06/28/19 15:36 Dilaudid IVPUSH 06/28/19 15:24 0.5 mg ONETIME ONE Administration Sodium Chloride 1,000 mls @ 250 mls/hr 06/28/19 15:18 06/28/19 15:33 Normal Saline IV 06/28/19 19:17 250 mls/hr ONETIME ONE Administration Ketorolac Tromethamine 30 mg 06/28/19 15:18 06/28/19 15:34 Toradol IVPUSH 06/28/19 15:19 30 mg ONETIME ONE Administration Lorazepam 1 mg 06/28/19 15:18 Ativan IVPUSH 06/28/19 15:19 ONETIME ONE Lorazepam 0.5 mg 06/28/19 15:24 06/28/19 15:38 Ativan IVPUSH 06/28/19 15:25 0.5 mg ONETIME ONE Administration - Re-Assessments/Exams Free Text/Narrative Re-Assessment/Exam: On exam patient is holding her left chest. She appears to be very anxious and has increased respiratory rate. Complains of sharp pain to left chest reproduced with taking a deep breath, movement, and also with palpation. She does have some numbness to her lips into her fingers. She's been evaluated in the ER here and also in the ED at [facility] for similar complaints. She' s been advised the cause of discomfort is chest wall in origin and was prescribed muscle relaxers. Blood pressure 134/108, heart rate 85, temperature is 97.2, rest rate 23, O2 sats 100%. Initial labs and studies will include: CBC, chem 14, CRP, d-dimer, coag studies , troponin, UA, drug screen, and chest x-ray one view. EKG: Sinus rhythm at a rate of 76, RI interval 193, QTC 422, Q waves V1 through V3, old anterior septal IL. Mild left atrial hypertrophy. Diffuse early repolarization pattern. T wave inverted in aVL. Chest x-ray impression: No acute findings noted. This was reviewed with Dr. Delaney. Did order ASA 324 mg by mouth, Dilaudid 0.5 mg IVP, and Ativan 0.5 mg IVP. I suspect cause of discomfort is more muscle skeletal in nature. EKG was reviewed with previous EKG with changes noted. She is quite anxious and a bluish may have had a panic attack. Labs reviewed: CBC essentially normal. D-dimer 0.33. CRP indicated normal sodium and potassium. AG a 15.7, creatinine 0.8, calcium is 10.2 slightly elevated, troponin within normal limits, CRP normal. I suspect if this was related to her heart the troponin would be elevated since onset of pain has been >4hrs. Believe this is more likely muscle skeletal in nature. I did review [facility] ER visit note 06/22/2019. EKG showed no acute ischemic changes, blood work was unremarkable including troponin and d-dimer. Believed pain was more likely muscle skeletal since pain was reproducible with pushing on her chest. Provided a prescription for Norflex. Discussed patient with Dr. Delaney. Does not believe admission to [facility] with stress test in the a.m. is required. No serial troponins as suspected due to time frame of symptoms. Suggested changes on EKG are not worrisome and stress test with echo and cardiac consultation can take place on outpatient basis. 1710 Reassessment, patient resting comfortably in bed. Discussed results of labs, EKG, chest x-ray with the patient. She is ready to be discharged home. She will followup with PCP for reevaluation and cardiac stress test. Prescription for flexeril has been provided. Return precautions discussed with patient. Discharge instructions as documented. Departure - Departure Time of Disposition: 17:13 Disposition: Home, Self-Care 01 Condition: Good Clinical Impression: Atypical chest pain, Chest wall pain Prescriptions: Cyclobenzaprine [Flexeril] 10 mg PO TID PRN #15 tab PRN Reason: Pain Instructions: Chest Wall Pain Referrals: José Jose MD [Primary Care Provider] - Forms: ED Department Discharge, ED Return to Work/School Form Additional Instructions: Followup with PCP in the next 3 to 5 days for reevaluation and to schedule cardiac stress test, echocardiogram, and cardiology evaluation. Take the flexeril as prescribed for chest wall pain. May use aleve and tylenol for pain as well. Do not drive today since receiving a sedative medication. Return to the E.D. for any new or worsening symptoms. Do not drive while taking the flexeril. - My Orders Last 24 Hours: My Active Orders 06/28/19 15:30 EKG 12 Lead [EKG Documentation Completion] [RC] STAT - Assessment/Plan Last 24 Hours: My Active Orders 06/28/19 15:30 EKG 12 Lead [EKG Documentation Completion] [RC] STAT
--- NOTE | 2019-06-28 17:49 | CR ---
Chest: Portable view of the chest was obtained. Comparison: Prior chest x-ray of 06/17/19. Heart size is felt to be within normal limits for portable technique. Tortuous thoracic aorta is seen. Lungs are clear with no acute parenchymal change. Bony structures are grossly intact. Impression: 1. Nothing acute is seen on portable chest x-ray. Diagnostic code #1
== END 2019-06-28 17:43 | disposition home or self-care (01) ==
LOC: JD.ED 14:36
DX: R07.89 Other chest pain (principal); Z88.1 Allergy status to other antibiotic agents; Z79.899 Other long term (current) drug therapy; Z90.49 Acquired absence of other specified parts of digestive tract
CPT/HCPCS: 36415; 71045; 80053; 84484; 85007; 85027; 85379; 85610; 85730; 86140; 93005; 96361; 96374; 96375; 99285; A9270; J1170; J1885; J2060; J7040

== ENCOUNTER 2019-07-05 12:27 | Emergency (ER) | payer BC ==
[2019-07-05 12:39] VITALS: BP 149/110; PULSE 73
[2019-07-05] MEDS ORDERED: Sodium Chloride 0.9% 10 ML Syringe FLUSH PRN (13:22)
[2019-07-05] MEDS ORDERED: Acetaminophen/HYDROcodone 325-5 MG Tab PO ONE (14:43)
[2019-07-05] MEDS ORDERED: Ketorolac 30 MG/ML SDV IM ONE (14:43)
--- NOTE | 2019-07-05 15:25 | EDM.PDOC ---
ED HPI GENERAL MEDICAL PROBLEM - General Chief Complaint: Chest Pain Stated Complaint: SWEATS, DIZZY,SOB Time Seen by Provider: 07/05/19 12:41 Source of Information: Reports: Patient, RN Notes Reviewed - History of Present Illness INITIAL COMMENTS - FREE TEXT/NARRATIVE: 54-year-old female comes in with anterior chest discomfort, dizziness that is been going on for several weeks. She's had several visits to this ED and also had a visit to [facility] ED about a week ago. She has not been coughing. There's been no fever or chills. He states the pain is worse with deep breathing and certain types of motion. She had been prescribed medication in [place] about a week ago to take twice a day. 8 she is now out of that medication. She does not know what that was. 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: - Infectious Disease History Infectious Disease History: Reports: Chicken Pox, Measles, Mumps - Past Surgical History GI Surgical History: Reports: Appendectomy Female Surgical History: Reports: Section, Oophorectomy Social & Family History - Family History Family Medical History: Noncontributory - Tobacco Use Smoking Status *Q: Never Smoker - Caffeine Use Caffeine Use: Reports: Soda - Recreational Drug Use Recreational Drug Use: No - Living Situation & Occupation Living situation: Reports: Occupation: Employed ED ROS GENERAL - Review of Systems Review Of Systems: See Below Constitutional: Denies: Fever, Chills, Diaphoresis HEENT: Denies: Sinus Problem, Throat Pain Respiratory: Reports: Shortness of Breath, Cough (occasional). Denies: Sputum Cardiovascular: Reports: Chest Pain, Lightheadedness, Palpitations GI/Abdominal: Denies: Abdominal Pain, Hematochezia, Melena, Nausea, Vomiting Musculoskeletal: Denies: Neck Pain, Shoulder Pain, Arm Pain, Back Pain Skin: Reports: No Symptoms Neurological: Reports: Dizziness. Denies: Trouble Speaking, Difficulty Walking , Weakness (no focal weakness) ED EXAM, GENERAL - Physical Exam Exam: See Below General Appearance: Alert, Anxious (Extremely anxious) Eye Exam: Bilateral Eye: PERRL Throat/Mouth: Normal Inspection, Normal Oropharynx Head: Atraumatic. No: Facial Swelling Neck: Supple, Full Range of Motion Respiratory/Chest: Lungs Clear, Respiratory Distress (tachypnea, hyperventilating at time of initial exam), Other (Severe tenderness sternal border). No: Rales, Rhonchi, Wheezing GI/Abdominal: Soft, Non-Tender. No: Guarding Back Exam: No: CVA Tenderness (L), CVA Tenderness (R) Extremities: No: Leg Pain, Increased Warmth, Redness Neurological: Alert, No Motor/Sensory Deficits Skin Exam: Warm, Dry, Normal Color EKG INTERPRETATION EKG Date: 07/05/19 Rhythm: NSR [place]: Normal P-Wave: Present QRS: Other (q waves v2) ST-T: Depressed (slight st depression V3-v5) Course - Vital Signs Last Recorded V/S: Last Vital Signs Temp 97.2 F 07/05/19 12:36 Pulse 73 07/05/19 12:36 Resp 33 H 07/05/19 12:36 BP 149/110 H 07/05/19 12:36 Pulse Ox 100 07/05/19 12:36 - Orders/Labs/Meds Labs: Laboratory Tests 07/05/19 07/05/19 07/05/19 Range/Units 13:50 13:50 13:50 WBC (3.98-10.04) K/mm3 RBC (3.98-5.22) M/mm3 Hgb (11.2-15.7) gm/dl Hct (34.1-44.9) % MCV (79.4-94.8) fl MCH (25.6-32.2) pg MCHC (32.2-35.5) g/dl RDW Std Deviation (36.4-46.3) fL Plt Count (182-369) K/mm3 MPV (9.4-12.3) fl Neut % (Auto) (34.0-71.1) % Lymph % (Auto) (19.3-51.7) % [place] % (Auto) (4.7-12.5) % Eos % (Auto) (0.7-5.8) Baso % (Auto) (0.1-1.2) % Neut # (Auto) (1.56-6.13) K/mm3 Lymph # (Auto) (1.18-3.74) K/mm3 [place] # (Auto) (0.24-0.36) K/mm3 Eos # (Auto) (0.04-0.36) K/mm3 Baso # (Auto) (0.01-0.08) K/mm3 Manual Slide Review ESR (0-20) mm/hr D-Dimer, Quantitative (0.19-0.50) mg/L Sodium 142 (136-145) mEq/L Potassium 3.5 (3.5-5.1) mEq/L Chloride 105 (98-107) mEq/L Carbon Dioxide 24 (21-32) mEq/L Anion Gap 16.5 H (5-15) BUN 13 (7-18) mg/dL Creatinine 0.8 (0.55-1.02) mg/dL Est Cr Clr Drug Dosing 66.50 mL/min Estimated GFR (MDRD) > 60 (>60) mL/min BUN/Creatinine Ratio 16.3 (14-18) Glucose 83 (74-106) mg/dL Calcium 10.3 H (8.5-10.1) mg/dL Total Bilirubin 0.8 (0.2-1.0) mg/dL AST 16 (15-37) U/L ALT 26 (14-59) U/L Alkaline Phosphatase 153 H (46-116) U/L Troponin I < 0.017 (0.00-0.056) ng/mL C-Reactive Protein < 0.2 (<1.0) mg/dL Total Protein 7.7 (6.4-8.2) g/dl Albumin 4.3 (3.4-5.0) g/dl Globulin 3.4 gm/dL Albumin/Globulin Ratio 1.3 (1-2) TSH 3rd Generation 1.094 (0.358-3.74) uIU/mL 07/05/19 07/05/19 07/05/19 Range/Units 13:54 13:54 13:59 WBC 7.63 (3.98-10.04) K/mm3 RBC 5.11 (3.98-5.22) M/mm3 Hgb 14.1 (11.2-15.7) gm/dl Hct 42.3 (34.1-44.9) % MCV 82.8 (79.4-94.8) fl MCH 27.6 (25.6-32.2) pg MCHC 33.3 (32.2-35.5) g/dl RDW Std Deviation 41.2 (36.4-46.3) fL Plt Count 367 (182-369) K/mm3 MPV 10.2 (9.4-12.3) fl Neut % (Auto) 60.8 (34.0-71.1) % Lymph % (Auto) 32.0 (19.3-51.7) % [place] % (Auto) 6.3 (4.7-12.5) % Eos % (Auto) 0.3 L (0.7-5.8) Baso % (Auto) 0.5 (0.1-1.2) % Neut # (Auto) 4.64 (1.56-6.13) K/mm3 Lymph # (Auto) 2.44 (1.18-3.74) K/mm3 [place] # (Auto) 0.48 H (0.24-0.36) K/mm3 Eos # (Auto) 0.02 L (0.04-0.36) K/mm3 Baso # (Auto) 0.04 (0.01-0.08) K/mm3 Manual Slide Review Normal smear ESR 15 (0-20) mm/hr D-Dimer, Quantitative 0.23 (0.19-0.50) mg/L Sodium (136-145) mEq/L Potassium (3.5-5.1) mEq/L Chloride (98-107) mEq/L Carbon Dioxide (21-32) mEq/L Anion Gap (5-15) BUN (7-18) mg/dL Creatinine (0.55-1.02) mg/dL Est Cr Clr Drug Dosing mL/min Estimated GFR (MDRD) (>60) mL/min BUN/Creatinine Ratio (14-18) Glucose (74-106) mg/dL Calcium (8.5-10.1) mg/dL Total Bilirubin (0.2-1.0) mg/dL AST (15-37) U/L ALT (14-59) U/L Alkaline Phosphatase (46-116) U/L Troponin I (0.00-0.056) ng/mL C-Reactive Protein (<1.0) mg/dL Total Protein (6.4-8.2) g/dl Albumin (3.4-5.0) g/dl Globulin gm/dL Albumin/Globulin Ratio (1-2) TSH 3rd Generation (0.358-3.74) uIU/mL Meds: Medications Discontinued Medications Generic Name Dose Route Start Last Admin Trade Name Freq PRN Reason Stop Dose Admin Hydrocodone Bitart/Acetaminophen 1 tab 07/05/19 14:43 07/05/19 14:54 [place] 325-5 Mg PO 07/05/19 14:44 1 tab ONETIME ONE Administration Ketorolac Tromethamine 30 mg 07/05/19 14:43 07/05/19 14:53 Toradol IM 07/05/19 14:44 30 mg ONETIME ONE Administration Lorazepam 1 mg 07/05/19 15:35 07/05/19 15:56 Ativan PO 07/05/19 15:36 1 mg ONETIME ONE Administration Sodium Chloride 10 ml 07/05/19 13:22 Saline Flush FLUSH ASDIRECTED PRN Keep Vein Open - Re-Assessments/Exams Free Text/Narrative Re-Assessment/Exam: 07/15/19 13:35 labs including trop., D Dimer, tsh normal. CXR nl, EKG no acute changes. She does have chest wall tenderness L sternal border, have given ativan tyleno and torodol which has given some relief. Discharge instr. as documented. Departure - Departure Time of Disposition: 16:27 Disposition: Home, Self-Care 01 Condition: Fair Clinical Impression: Chest wall pain Prescriptions: Naproxen [Naprosyn] 500 mg PO Q12HR #14 tab LORazepam [Ativan] 1 mg PO BID #10 tab Instructions: Chest Wall Pain, [id number] Referrals: José Jose MD [Primary Care Provider] - Forms: ED Department Discharge Additional Instructions: Naprosyn 500 mg twice daily for pain and inflammation, and 8 ice and heat to left front area of your chest for pain relief as needed, Ativan 1 mg twice daily for muscle and nerve relaxation, is a sedating medication, do not drive when taking this medication. Follow-up with Dr. Souza later this week or early next week for recheck, further evaluation and treatment as needed. If unable to get in to see Dr. Souza in a timely fashion you may see one of the other clinic providers as needed.
[2019-07-05] MEDS ORDERED: LORazepam 1 MG Tab PO ONE (15:35)
--- NOTE | 2019-07-06 08:59 | CR ---
Chest: Portable view of the chest was obtained. Comparison: Previous chest x-ray of 06/28/19. Heart size and mediastinum are normal. Lungs are clear. Bony structures are grossly intact. Impression: 1. Nothing acute is seen on portable chest x-ray. Diagnostic code #1
== END 2019-07-05 16:45 | disposition home or self-care (01) ==
LOC: JD.ED 12:27
DX: R07.89 Other chest pain (principal); Z88.1 Allergy status to other antibiotic agents; Z90.49 Acquired absence of other specified parts of digestive tract
CPT/HCPCS: 36415; 71045; 80053; 84443; 84484; 85025; 85379; 85652; 86140; 93005; 96372; 99285; A9270; J1885; 93010; 99284

== ENCOUNTER 2019-12-21 07:30 | Emergency (ER) | payer BC ==
[2019-12-21] MEDS ORDERED: Sodium Chloride 0.9% 10 ML Syringe FLUSH PRN (07:48)
[2019-12-21] MEDS ORDERED: Aspirin 81 MG Tab.Chew PO ONE (07:48)
[2019-12-21] MEDS ORDERED: Albuterol/Ipratropium 3.0-0.5 MG/3 ML Neb Soln NEB ONE (09:21)
--- NOTE | 2019-12-21 09:52 | EDM.PDOC ---
ED HPI GENERAL MEDICAL PROBLEM - General Chief Complaint: Chest Pain Stated Complaint: SOB Time Seen by Provider: 12/21/19 08:10 Source of Information: Reports: Patient History Limitations: Reports: No Limitations - History of Present Illness INITIAL COMMENTS - FREE TEXT/NARRATIVE: The patient presents with shortness of breath. She also has a cough and congestion. This has been going on since Friday. She has no measurable fever. She has some mile chest tightness. She has no abdominal pain, nausea or vomiting. She was told a few weeks ago she had some narrowing of arteries in her heart. She is not clear on how Shaheen decided that. She did not have an angiogram according to her. She has no history of DVT or PE. The patient was hyperventilating when she came in. Onset: Gradual Duration: Day(s): (5) Location: Reports: Chest Quality: Reports: Other (tightness) Severity: Mild Improves with: Reports: None Worsens with: Reports: None Associated Symptoms: Reports: Chest Pain, Cough, Shortness of Breath. Denies: Fever/Chills, Headaches, Nausea/Vomiting Chest Pain Score (Numeric/FACES): 10 - Related Data Allergies Allergy/AdvReac Type Severity Reaction Status Date / Time amoxicillin Allergy Hives Verified 12/21/19 07:47 Home Meds: Home Meds Albuterol [Proventil HFA] 2 puff INH Q4H PRN #1 inhaler 12/21/19 [Rx] Azithromycin [Zithromax] 250 mg PO DAILY #6 tab 12/21/19 [Rx] Codeine/Promethazine [Phenergan with Codeine] 5 - 10 ml PO Q6HR PRN #300 ml [Rx] Past Medical History - Past Health History Medical/Surgical History: Denies Medical/Surgical History Cardiovascular History: Reports: Other (See Below) Other Cardiovascular History: fluid around heart and inflammed. 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: GERD [employer] LIGHT History: Reports: - Infectious Disease History Infectious Disease History: Reports: Chicken Pox, Measles, Mumps - Past Surgical History GI Surgical History: Reports: Appendectomy Female Surgical History: Reports: Section, Oophorectomy Social & Family History - Family History Family Medical History: Noncontributory - Tobacco Use Smoking Status *Q: Never Smoker - Caffeine Use Caffeine Use: Reports: Soda - Recreational Drug Use Recreational Drug Use: No - Living Situation & Occupation Living situation: Reports: Occupation: Employed ED ROS GENERAL - Review of Systems Review Of Systems: See Below Constitutional: Reports: No Symptoms HEENT: Reports: Other (Congestion) Respiratory: Reports: Shortness of Breath, Cough Cardiovascular: Reports: Chest Pain Endocrine: Reports: No Symptoms GI/Abdominal: Reports: No Symptoms : Reports: No Symptoms Musculoskeletal: Reports: No Symptoms ED EXAM, GENERAL - Physical Exam Exam: See Below Exam Limited By: No Limitations General Appearance: Alert, No Apparent Distress Ears: Normal External Exam Nose: Normal Inspection Head: Atraumatic, Normocephalic Neck: Normal Inspection Respiratory/Chest: No Respiratory Distress, Lungs Clear, Normal Breath Sounds Cardiovascular: Regular Rate, Rhythm, No Edema, No Murmur GI/Abdominal: Normal Bowel Sounds, Soft, Non-Tender, No Organomegaly Back Exam: Normal Inspection Extremities: Normal Inspection EKG INTERPRETATION EKG Date: 12/21/19 Time: 07:38 Rhythm: NSR Rate (Beats/Min): 83 [place]: Normal P-Wave: Present QRS: Normal ST-T: Elevated (Normal early repol) QT: Normal Course - Vital Signs Last Recorded V/S: Last Vital Signs Temp 98.0 F 12/21/19 07:30 Pulse 89 12/21/19 07:30 Resp 16 12/21/19 07:30 BP 154/91 H 12/21/19 07:30 Pulse Ox 100 12/21/19 07:30 - Orders/Labs/Meds Orders: Active Orders 24 hr Category Date Time Status EKG 12 Lead [EKG Documentation Completion] [RC] STAT Care 12/21/19 07:55 Active RT Aerosol Therapy [RC] ASDIRECTED Care 12/21/19 09:22 Active Chest 1V Frontal [CR] Stat Exams 12/21/19 07:47 Taken Sodium Chloride 0.9% [Saline Flush] Med 12/21/19 07:48 Active 10 ml FLUSH ASDIRECTED PRN Isolation [COMM] Routine Oth 12/21/19 08:15 Ordered Saline Lock Insert [OM.PC] Routine Oth 12/21/19 07:48 Ordered Medication Orders Sodium Chloride (Saline Flush) 10 ml FLUSH ASDIRECTED PRN PRN Reason: Keep Vein Open Last Admin: 12/21/19 07:40 Dose: 10 ml Labs: Laboratory Tests 12/21/19 12/21/19 12/21/19 Range/Units 07:40 07:40 07:40 WBC 6.80 (3.98-10.04) K/mm3 RBC 4.88 (3.98-5.22) M/mm3 Hgb 13.6 D (11.2-15.7) gm/dl Hct 41.3 (34.1-44.9) % MCV 84.6 (79.4-94.8) fl MCH 27.9 (25.6-32.2) pg MCHC 32.9 (32.2-35.5) g/dl RDW Std Deviation 42.7 (36.4-46.3) fL Plt Count 349 (182-369) K/mm3 MPV 10.4 (9.4-12.3) fl Neut % (Auto) 75.2 H (34.0-71.1) % Lymph % (Auto) 18.8 L (19.3-51.7) % Swisher % (Auto) 4.9 (4.7-12.5) % Eos % (Auto) 0.6 L (0.7-5.8) Baso % (Auto) 0.4 (0.1-1.2) % Neut # (Auto) 5.11 (1.56-6.13) K/mm3 Lymph # (Auto) 1.28 (1.18-3.74) K/mm3 Swisher # (Auto) 0.33 (0.24-0.36) K/mm3 Eos # (Auto) 0.04 (0.04-0.36) K/mm3 Baso # (Auto) 0.03 (0.01-0.08) K/mm3 D-Dimer, Quantitative 0.22 (0.19-0.50) mg/L Sodium 142 (136-145) mEq/L Potassium 3.2 L (3.5-5.1) mEq/L Chloride 105 (98-107) mEq/L Carbon Dioxide 20 L (21-32) mEq/L Anion Gap 20.2 H (5-15) BUN 14 (7-18) mg/dL Creatinine 1.1 H (0.55-1.02) mg/dL Est Cr Clr Drug Dosing 46.24 mL/min Estimated GFR (MDRD) 52 (>60) mL/min BUN/Creatinine Ratio 12.7 L (14-18) Glucose 179 H (74-106) mg/dL Calcium 9.5 (8.5-10.1) mg/dL Total Bilirubin 0.7 (0.2-1.0) mg/dL AST 14 L (15-37) U/L ALT 23 (14-59) U/L Alkaline Phosphatase 150 H (46-116) U/L CK-MB (CK-2) 1.3 (0-3.6) ng/ml Troponin I < 0.017 (0.00-0.056) ng/mL Total Protein 7.2 (6.4-8.2) g/dl Albumin 3.9 (3.4-5.0) g/dl Globulin 3.3 gm/dL Albumin/Globulin Ratio 1.2 (1-2) Meds: Medications Generic Name Dose Route Start Last Admin Trade Name Freq PRN Reason Stop Dose Admin Sodium Chloride 10 ml 12/21/19 07:48 12/21/19 07:40 Saline Flush FLUSH 10 ml ASDIRECTED PRN Administration Keep Vein Open Discontinued Medications Generic Name Dose Route Start Last Admin Trade Name Freq PRN Reason Stop Dose Admin Albuterol/Ipratropium 3 ml 12/21/19 09:21 12/21/19 09:30 Duoneb 3.0-0.5 Mg/3 Ml NEB 12/21/19 09:22 3 ml ONETIME ONE Administration Aspirin 324 mg 12/21/19 07:48 12/21/19 08:00 Aspirin PO 12/21/19 07:49 324 mg ONETIME ONE Administration - Re-Assessments/Exams Free Text/Narrative Re-Assessment/Exam: 12/21/19 09:52 I ordered an IV, labs, EKG, CXR, and aspirin. Her EKG shows a NSR with no acute changes. Her CXR looks good. Her CBC looks good. Her D-dimer is normal. Her K is a little low at 3.2. Her anion gap is elevated at 20.2. He creatinine is slightly elevated at 1.1. Her glucose is elevated at 179. Her alk phos is elevated at 150. Her troponin is normal. I did give her a breathing treatment to see if that did help. 12/21/19 09:58 Her influenza is negative. I feel she has bronchitis. I will get her on a z- blake, something for the cough and albuterol. Departure - Departure Time of Disposition: 10:00 Disposition: Home, Self-Care 01 Condition: Good Clinical Impression: Bronchitis - Discharge Information *PRESCRIPTION DRUG MONITORING PROGRAM REVIEWED*: No *COPY OF PRESCRIPTION DRUG MONITORING REPORT IN PATIENT DAIN: No Prescriptions: Codeine/Promethazine [Phenergan with Codeine] 5 - 10 ml PO Q6HR PRN #300 ml PRN Reason: Cough Albuterol [Proventil HFA] 2 puff INH Q4H PRN #1 inhaler PRN Reason: Shortness Of Breath Azithromycin [Zithromax] 250 mg PO DAILY #6 tab Referrals: José Jose MD [Primary Care Provider] - 1 Week Forms: ED Department Discharge, ED Return to Work/School Form Additional Instructions: Take the medication as prescribed. Take motrin or tylenol for fever or pain. Please return if you are worse. Sepsis Event Note - Evaluation Sepsis Screening Result: No Definite Risk - Focused Exam Vital Signs: Vital Signs Temp Pulse Resp BP Pulse Ox 12/21/19 07:30 98.0 F 89 16 154/91 H 100 Date Exam was Performed: 12/21/19 Time Exam was Performed: 09:58 - My Orders Last 24 Hours: My Active Orders 12/21/19 07:47 Chest 1V Frontal [CR] Stat 12/21/19 07:48 Sodium Chloride 0.9% [Saline Flush] 10 ml FLUSH ASDIRECTED PRN Saline Lock Insert [OM.PC] Routine 12/21/19 07:55 EKG 12 Lead [EKG Documentation Completion] [RC] STAT 12/21/19 08:15 Isolation [COMM] Routine 12/21/19 09:22 RT Aerosol Therapy [RC] ASDIRECTED - Assessment/Plan Last 24 Hours: My Active Orders 12/21/19 07:47 Chest 1V Frontal [CR] Stat 12/21/19 07:48 Sodium Chloride 0.9% [Saline Flush] 10 ml FLUSH ASDIRECTED PRN Saline Lock Insert [OM.PC] Routine 12/21/19 07:55 EKG 12 Lead [EKG Documentation Completion] [RC] STAT 12/21/19 08:15 Isolation [COMM] Routine 12/21/19 09:22 RT Aerosol Therapy [RC] ASDIRECTED
[2019-12-21 10:19] VITALS: BP 121/67; PULSE 72
--- NOTE | 2019-12-21 10:30 | CR ---
Chest: Portable view of the chest was obtained. Comparison: Prior chest x-ray of 08/19/19. Heart size and mediastinum are within normal limits for portable technique. No acute parenchymal change is appreciated. Bony structures are grossly intact. Impression: 1. Nothing acute is appreciated on portable chest x-ray. Diagnostic code #1 This report was dictated in [place] Standard Time
== END 2019-12-21 10:18 | disposition home or self-care (01) ==
LOC: JD.ED 07:30
DX: J40 Bronchitis, not specified as acute or chronic (principal); K21.9 Gastro-esophageal reflux disease without esophagitis; Z79.899 Other long term (current) drug therapy
CPT/HCPCS: 36415; 71045; 80053; 82553; 84484; 85025; 85379; 87804; 93005; 94640; 99285; A9270; J7620-GY

== ENCOUNTER 2020-03-13 09:58 | Emergency (ER) | payer BC, OTHER ==
[2020-03-13 10:08] VITALS: BP 111/85; PULSE 72
--- NOTE | 2020-03-13 10:33 | CR ---
Chest: Portable view of the chest was obtained. Comparison: Prior chest x-ray of 12/21/19. Heart size and mediastinum are normal. Lungs are clear with no acute parenchymal change. Bony structures are grossly intact. Impression: 1. Nothing acute is seen on portable chest x-ray. Diagnostic code #1 This report was dictated in MDT
[2020-03-13] MEDS ORDERED: HYDROmorphone 0.5 MG/0.5 ML Syringe IVPUSH ONE (10:37)
[2020-03-13] MEDS ORDERED: Metoclopramide 10 MG/2 ML SDV IVPUSH ONE (10:37)
[2020-03-13] MEDS ORDERED: LORazepam 2 MG/ML SDV IVPUSH ONE (10:40)
--- NOTE | 2020-03-13 10:43 | EDM.PDOC ---
ED HPI GENERAL MEDICAL PROBLEM - General Chief Complaint: Chest Pain Stated Complaint: CHEST PAIN Time Seen by Provider: 03/13/20 10:37 Source of Information: Reports: Patient History Limitations: Reports: No Limitations - History of Present Illness INITIAL COMMENTS - FREE TEXT/NARRATIVE: 54-year-old female presents to the ED with diffuse epigastric retrosternal chest pain radiating underneath her left breast to the mid axillary line. Pain is sharp and stabbing and worsens with any deep breathing at all. Even shallow breathing hurts. She states she developed a cough and minimal sputum production yesterday afternoon. She believes she has been running a low-grade fever. She has not expectorating any sputum. Appetite has been rather poor over the weekend. Patient did go to work this morning but had to quit because of the intensity of the pain. It was present very minimally and seem to have a waxing waning phenomenon starting about 0600 hrs. this morning. Over the last 2 hours it is become much more intense and constant. She has no chest wall injury. No known heart disease. No history of PE or DVT. Pain did become bad enough to make her of course very short of breath. Associated diaphoresis. She presented hyperventilating taking shallow respirations due to the intensity of the pain. Onset: Today Onset Date: 03/13/20 Onset Time: 06:00 (Had some mild retrosternal chest discomfort this morning.) Duration: Hour(s): Location: Reports: Chest (Lower retrosternal chest rating underneath the left breast to the mid axillary line left side) Quality: Reports: Pressure, Sharp, Stabbing Severity: Moderate (Pain is mostly pleuritic it out of 10) Improves with: Reports: Rest (Rest and very shallow breathing.) Worsens with: Reports: Other Context: Denies: Activity (With movement coughing or deep breathing), Exercise, Lifting, Sick Contact, Trauma Associated Symptoms: Reports: Chest Pain, Cough, Diaphoresis (The intensity of pain the last 2 hours), Fever/Chills (Is some fever and low-grade chills yesterday), Loss of Appetite, Malaise, Shortness of Breath. 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 (see below) (She did take some aspirin this morning for pain relief) Left Lower Chest Pain Score (Numeric/FACES): 6 - Related Data Allergies Allergy/AdvReac Type Severity Reaction Status Date / Time amoxicillin Allergy Hives Verified 03/13/20 10:08 Home Meds: Home Meds Albuterol [Proventil HFA] 2 puff INH Q4H PRN #1 inhaler 12/21/19 [Rx] Azithromycin [Zithromax] 250 mg PO DAILY #6 tab 12/21/19 [Rx] Codeine/Promethazine [Phenergan with Codeine] 5 - 10 ml PO Q6HR PRN #300 ml [Rx] Diclofenac Sodium [Voltaren] 50 mg PO TID #24 tab.ec 03/13/20 [Rx] Gabapentin [Neurontin] 300 mg PO BEDTIME #7 cap 03/13/20 [Rx] oxyCODONE HCl/Acetaminophen [Percocet 5-325 mg Tablet] 1 - 2 each PO Q4H PRN # 14 tablet 03/13/20 [Rx] predniSONE [Prednisone] 20 mg PO BID #12 tablet 03/13/20 [Rx] Past Medical History - Past Health History Medical/Surgical History: Denies Medical/Surgical History Cardiovascular History: Reports: Other (See Below) Other Cardiovascular History: fluid around heart and inflammed. 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: - Infectious Disease History Infectious Disease History: Reports: Chicken Pox, Measles, Mumps - Past Surgical History GI Surgical History: Reports: Appendectomy Female Surgical History: Reports: Section, Oophorectomy Social & Family History - Family History Family Medical History: Noncontributory - Tobacco Use Smoking Status *Q: Never Smoker - Caffeine Use Caffeine Use: Reports: Soda - Recreational Drug Use Recreational Drug Use: No - Living Situation & Occupation Living situation: Reports: Occupation: Employed ED ROS GENERAL - Review of Systems Review Of Systems: See Below Constitutional: Reports: Fever, Chills, Malaise, Fatigue, Decreased Appetite HEENT: Reports: No Symptoms Respiratory: Reports: Shortness of Breath, Pleuritic Chest Pain, Cough. Denies : Wheezing, Sputum, Hemoptysis Cardiovascular: Reports: Chest Pain, Lightheadedness. Denies: Blood Pressure Problem (History of present illness), Claudication, Dyspnea on Exertion, Edema ( Gets lightheaded from the intensity of the pain), Orthopnea, Palpitations Endocrine: Reports: No Symptoms GI/Abdominal: Reports: No Symptoms : Reports: No Symptoms Musculoskeletal: Reports: No Symptoms Skin: Reports: No Symptoms Neurological: Reports: Dizziness Psychiatric: Reports: No Symptoms Hematologic/Lymphatic: Reports: No Symptoms Immunologic: Reports: No Symptoms ED EXAM, GENERAL - Physical Exam Exam: See Below Exam Limited By: Respiratory Distress General Appearance: Alert, WD/WN, Moderate Distress, Other (Temperature is 37.1. Heart rate is 72 and sinus respiratory was 20 to 24/min with O2 sats of 100%. I.e. mild hyperventilation syndrome BP 111/85.) Eye Exam: Bilateral Eye: Normal Inspection, PERRL Ears: Normal TMs Throat/Mouth: Normal Inspection, Normal Lips, Normal Teeth, Normal Oropharynx Head: Atraumatic, Normocephalic Neck: Normal Inspection, Supple, Non-Tender, Full Range of Motion. No: Lymphadenopathy (L), Lymphadenopathy (R) Respiratory/Chest: Lungs Clear (Daughter tachypnea.), Respiratory Distress, Splinting (Splinting respirations and quite shallow rapid respirations.), Other (Chest wall is extremely tender on the right side at his fourth and fifth ribs midclavicular line on the left it is 2-6 on the midclavicular line. The fourth rib is the worst as is the fifth. It seems to be exquisitely tender to touch.) Cardiovascular: Normal Peripheral Pulses, Regular Rate, Rhythm, No Edema, No Gallop, No Murmur, No Rub Peripheral Pulses: 3+: Carotid (L), Carotid (R), Posterior Tibial (L), Posterior Tibial (R), Dorsalis Pedis (L), Dorsalis Pedis (R) GI/Abdominal: Normal Bowel Sounds, Soft, Non-Tender, No Organomegaly, No Abnormal Bruit, No Mass, Pelvis Stable, Other (Pfannenstiel incision lower abdomen from 2 C-sections. She is also had an appendectomy) Back Exam: Normal Inspection, Full Range of Motion, CVA Tenderness (L). No: CVA Tenderness (R), Decreased Range of Motion (Mild), Muscle Spasm Extremities: Normal Inspection, Normal Range of Motion, Non-Tender, No Pedal Edema Neurological: Alert, Oriented, CN II-XII Intact, Normal Cognition Psychiatric: Anxious Skin Exam: Warm, Dry, Intact, Normal Color, No Rash EKG INTERPRETATION EKG Date: 03/13/20 Time: 10:09 Rhythm: NSR Rate (Beats/Min): 72 [place]: Normal P-Wave: Present QRS: Normal ST-T: Other (Diffuse early repolarization pattern) QT: Normal EKG Interpretation Comments: Normal ECG. Course - Vital Signs Last Recorded V/S: Last Vital Signs Temp 37.1 C 03/13/20 10:06 Pulse 72 03/13/20 10:06 Resp 20 03/13/20 10:06 BP 111/85 03/13/20 10:06 Pulse Ox 100 03/13/20 10:06 - Orders/Labs/Meds Orders: Active Orders 24 hr Category Date Time Status EKG Documentation Completion [RC] ASDIRECTED Care 03/13/20 10:11 Active Dextrose 5%-0.9% NaCl [Dextrose 5%-Normal Saline] 1,000 Med 03/13/20 10:45 Active ml IV ASDIRECTED Ketorolac [Toradol] Med 03/13/20 10:45 Active 30 mg IVPUSH ONETIME EKG 12 Lead [EK] Stat Ther 03/13/20 10:10 Ordered Medication Orders Dextrose/Sodium Chloride (Dextrose 5%-Normal Saline) 1,000 mls @ 125 mls/hr IV ASDIRECTED EVER Last Admin: 03/13/20 11:02 Dose: 125 mls/hr Ketorolac Tromethamine (Toradol) 30 mg IVPUSH ONETIME EVER Last Admin: 03/13/20 11:00 Dose: 30 mg Labs: Laboratory Tests 03/13/20 03/13/20 03/13/20 Range/Units 10:15 10:15 10:15 WBC 5.87 (3.98-10.04) K/mm3 RBC 5.01 (3.98-5.22) M/mm3 Hgb 13.9 (11.2-15.7) gm/dl Hct 42.4 (34.1-44.9) % MCV 84.6 (79.4-94.8) fl MCH 27.7 (25.6-32.2) pg MCHC 32.8 (32.2-35.5) g/dl RDW Std Deviation 43.0 (36.4-46.3) fL Plt Count 366 (182-369) K/mm3 MPV 10.5 (9.4-12.3) fl Neut % (Auto) 68.7 (34.0-71.1) % Lymph % (Auto) 24.0 (19.3-51.7) % Dougherty % (Auto) 6.3 (4.7-12.5) % Eos % (Auto) 0.3 L (0.7-5.8) Baso % (Auto) 0.5 (0.1-1.2) % Neut # (Auto) 4.03 (1.56-6.13) K/mm3 Lymph # (Auto) 1.41 (1.18-3.74) K/mm3 Dougherty # (Auto) 0.37 H (0.24-0.36) K/mm3 Eos # (Auto) 0.02 L (0.04-0.36) K/mm3 Baso # (Auto) 0.03 (0.01-0.08) K/mm3 APTT (22-31) SECONDS D-Dimer, Quantitative 0.20 (0.19-0.50) mg/L Sodium 142 (136-145) mEq/L Potassium 3.7 (3.5-5.1) mEq/L Chloride 105 (98-107) mEq/L Carbon Dioxide 23 (21-32) mEq/L Anion Gap 17.7 H (5-15) BUN 13 (7-18) mg/dL Creatinine 0.9 (0.55-1.02) mg/dL Est Cr Clr Drug Dosing 63.96 mL/min Estimated GFR (MDRD) > 60 (>60) mL/min BUN/Creatinine Ratio 14.4 (14-18) Glucose 90 (74-106) mg/dL Calcium 9.9 (8.5-10.1) mg/dL Magnesium (1.8-2.4) mg/dl Total Bilirubin 0.6 (0.2-1.0) mg/dL AST 20 (15-37) U/L ALT 34 (14-59) U/L Alkaline Phosphatase 146 H (46-116) U/L CK-MB (CK-2) (0-3.6) ng/ml Troponin I < 0.017 (0.00-0.056) ng/mL C-Reactive Protein (<1.0) mg/dL Total Protein 7.6 (6.4-8.2) g/dl Albumin 4.1 (3.4-5.0) g/dl Globulin 3.5 gm/dL Albumin/Globulin Ratio 1.2 (1-2) 03/13/20 03/13/20 Range/Units 10:15 10:15 WBC (3.98-10.04) K/mm3 RBC (3.98-5.22) M/mm3 Hgb (11.2-15.7) gm/dl Hct (34.1-44.9) % MCV (79.4-94.8) fl MCH (25.6-32.2) pg MCHC (32.2-35.5) g/dl RDW Std Deviation (36.4-46.3) fL Plt Count (182-369) K/mm3 MPV (9.4-12.3) fl Neut % (Auto) (34.0-71.1) % Lymph % (Auto) (19.3-51.7) % Dougherty % (Auto) (4.7-12.5) % Eos % (Auto) (0.7-5.8) Baso % (Auto) (0.1-1.2) % Neut # (Auto) (1.56-6.13) K/mm3 Lymph # (Auto) (1.18-3.74) K/mm3 Dougherty # (Auto) (0.24-0.36) K/mm3 Eos # (Auto) (0.04-0.36) K/mm3 Baso # (Auto) (0.01-0.08) K/mm3 APTT 26 (22-31) SECONDS D-Dimer, Quantitative (0.19-0.50) mg/L Sodium (136-145) mEq/L Potassium (3.5-5.1) mEq/L Chloride (98-107) mEq/L Carbon Dioxide (21-32) mEq/L Anion Gap (5-15) BUN (7-18) mg/dL Creatinine (0.55-1.02) mg/dL Est Cr Clr Drug Dosing mL/min Estimated GFR (MDRD) (>60) mL/min BUN/Creatinine Ratio (14-18) Glucose (74-106) mg/dL Calcium (8.5-10.1) mg/dL Magnesium 1.9 (1.8-2.4) mg/dl Total Bilirubin (0.2-1.0) mg/dL AST (15-37) U/L ALT (14-59) U/L Alkaline Phosphatase (46-116) U/L CK-MB (CK-2) 1.1 (0-3.6) ng/ml Troponin I (0.00-0.056) ng/mL C-Reactive Protein <0.2 (<1.0) mg/dL Total Protein (6.4-8.2) g/dl Albumin (3.4-5.0) g/dl Globulin gm/dL Albumin/Globulin Ratio (1-2) Meds: Medications Generic Name Dose Route Start Last Admin Trade Name Freq PRN Reason Stop Dose Admin Dextrose/Sodium Chloride 1,000 mls @ 125 mls/hr 03/13/20 10:45 03/13/20 11:02 Dextrose 5%-Normal Saline IV 125 mls/hr ASDIRECTED EVER Administration Ketorolac Tromethamine 30 mg 03/13/20 10:45 03/13/20 11:00 Toradol IVPUSH 30 mg ONETIME EVER Administration Discontinued Medications Generic Name Dose Route Start Last Admin Trade Name Freq PRN Reason Stop Dose Admin Dexamethasone 10 mg 03/13/20 11:47 03/13/20 11:51 Dexamethasone IVPUSH 03/13/20 11:48 10 mg ONETIME ONE Administration Hydromorphone HCl 0.5 mg 03/13/20 10:37 03/13/20 11:01 Dilaudid IVPUSH 03/13/20 10:38 0.5 mg ONETIME ONE Administration Lorazepam 0.5 mg 03/13/20 10:40 03/13/20 11:00 Ativan IVPUSH 03/13/20 10:41 0.5 mg ONETIME ONE Administration Metoclopramide HCl 7.5 mg 03/13/20 10:37 03/13/20 10:59 Reglan IVPUSH 03/13/20 10:38 7.5 mg ONETIME ONE Administration - Radiology Interpretation Free Text/Narrative:: 54-year-old female presents to the ED with gradually worsening left-sided chest pain. She felt she developed upper respiratory tract infection symptoms yesterday with cough and no sputum production. Perhaps mild shortness of breath on exertion. Upon awakening this morning at 0600 hrs. experiencing retrosternal chest pressure and pleuritic pain. Subsequently has spread across the left lower chest underneath her breast in the distribution of the fourth fifth and sixth ribs to the mid axillary line. Pain is very sharp and stabbing or pleuritic. She cannot take a full deep breath. She presented hyperventilating due to the intensity of the pain and shallow breathing. Sats are 100% on room air. She was found to have exquisite chest wall pain from ribs 2-7 on the left side in the midclavicular line on the right side fourth and fifth ribs were tender in the midclavicular line. Lungs sound clear but difficult to clarify as she cannot take a full deep breath. Chest x-ray done is within normal limits showing no signs of pneumothorax or infiltrate. ECG is sinus at 72 with no signs of ischemia. An IV D5 normal saline at 125 mils per hour. Given Toradol 30 mg IV with Reglan 7.5 mg IV. Dilaudid 0.5 mg IV and Ativan 0.5 mg IV for pain relief. Routine labs to be done including a d-dimer and cardiac markers. CRP as well. - Re-Assessments/Exams Free Text/Narrative Re-Assessment/Exam: 03/13/20 11:30 Patient reports overall the pain is improved. She still feels a sharp stabbing component of pain to the left lateral chest particulate from the breast to the mid axillary line adjacent to rib #5. Pain appears to be either inflammation of the periosteum and perhaps a neurogenic component because it is shooting around the bottom of the ribs to the midaxillary line. We will give her dexamethasone 10 mg IV. 03/13/20 11:46 White count is 5.87. The differential shows 69% neutrophils. This is an auto differential. Hemoglobin is 13.9 with hematocrit of 42.4. Platelet counts 366,000. PTT is 26. D-dimer is 0.20 ruling out PE. Sodium is 142 with a potassium of 3.7. Chloride 105 with a bicarb of 23. Anion gap is elevated at 17.7. BUN is 13 with a creatinine of 0.9. GFR is greater than 60. Glucose is 90 with a calcium of 9.9. Magnesium is 1.9. Total bilirubin is 0.6. Alk phosphatase is mildly elevated at 146. Transaminases are normal. CK- MB fraction is 1.1. Troponin I is less than 0.017 C-reactive protein less than 0.2. Total protein is 7.6 with an albumin fraction of 4.1. 03/13/20 11:59 plan will be to discharge the patient to home on gabapentin 300 mg at bedtime. This will be for period of 7 days. Percocet tabs 5/325 mg 1 or 2 every 4-6 hours as needed for pain relief. Voltaren 50 mg 3 times daily for the next 8 days to relieve inflammation. Prednisone 20 mg twice daily for 6 days to relieve inflammation as well. Note will be given to excuse her from the workplace for the next 2 days. Departure - Departure Time of Disposition: 12:50 Disposition: Home, Self-Care 01 Condition: Fair Clinical Impression: Anterior chest wall pain, Non-cardiac chest pain Prescriptions: Diclofenac Sodium [Voltaren] 50 mg PO TID #24 tab.ec Gabapentin [Neurontin] 300 mg PO BEDTIME #7 cap oxyCODONE HCl/Acetaminophen [Percocet 5-325 mg Tablet] 1 - 2 each PO Q4H PRN # 14 tablet PRN Reason: pain relief. predniSONE [Prednisone] 20 mg PO BID #12 tablet Instructions: Chest Wall Pain Referrals: José Jose MD [Primary Care Provider] - Forms: ED Department Discharge, ED Return to Work/School Form Additional Instructions: Evaluation in the emergency room this morning in regards to development of severe retrosternal chest pain radiating underneath the left breast towards the left lateral chest wall. Pain is very sharp stabbing and pleuritic in intensity. It is also a mild pressure sensation. He appreciated development of this abnormal sensation left chest wall yesterday afternoon and thoughts were coming down with a upper respiratory tract infection. Pain was present when he awoke this morning but worsened as the morning went on. It got to the point that she could barely take a deep breath without having severe pain. Complete work-up in the ED reveals no evidence of heart related illness. There is no blood clots in the lungs. Chest x-ray is normal. There is no evidence of heart related illness. Pain is coming from inflammation of the lining of the ribs and the nerves underneath each rib and the left anterior chest wall. Ribs 2-7 were intensely tender to touch in the midclavicular line on palpation. Suggest off work today tomorrow and the next day to allow medications to become effective to relieve your chest pain so that you can return to work. You were treated with intravenous medications in the ED to relieve pain and initial dose of steroid dexamethasone was given intravenously. You will need to take pain medication Percocet 5/325 mg 1 or 2 tablets every 4-6 hours necessary for pain relief. I would suggest taking 1 tablet and if pain is not markedly improved in an hour and a half may take a second tablet. This usually should be taken with food in the stomach. Need to take anti-inflammatory Voltaren 50 mg 3 times daily with food for the next 8 days. Prednisone or Deltasone 20 mg with breakfast and supper for the next 6 days to relieve inflammation Next tablet would be due tomorrow morning. Gabapentin 300 mg once daily at bedtime ideally around 8:00 as they can cause some sedation in some people. Is to relieve nerve pain in the left anterior chest wall. Not markedly improved in 72 hours time you should follow-up with your primary care physician. Sepsis Event Note - Evaluation Sepsis Screening Result: No Definite Risk - Focused Exam Vital Signs: Vital Signs Temp Pulse Resp BP Pulse Ox 03/13/20 10:06 37.1 C 72 20 111/85 100 Date Exam was Performed: 03/13/20 Time Exam was Performed: 13:09 - My Orders Last 24 Hours: My Active Orders 03/13/20 10:10 EKG 12 Lead [EK] Stat 03/13/20 10:11 EKG Documentation Completion [RC] ASDIRECTED 03/13/20 10:45 Dextrose 5%-0.9% NaCl [Dextrose 5%-Normal Saline] 1,000 ml IV ASDIRECTED Ketorolac [Toradol] 30 mg IVPUSH ONETIME - Assessment/Plan Last 24 Hours: My Active Orders 03/13/20 10:10 EKG 12 Lead [EK] Stat 03/13/20 10:11 EKG Documentation Completion [RC] ASDIRECTED 03/13/20 10:45 Dextrose 5%-0.9% NaCl [Dextrose 5%-Normal Saline] 1,000 ml IV ASDIRECTED Ketorolac [Toradol] 30 mg IVPUSH ONETIME
[2020-03-13] MEDS ORDERED: Ketorolac 30 MG/ML SDV IVPUSH SCH (10:45)
[2020-03-13] MEDS ORDERED: Dextrose 5%-0.9% NaCl 1,000 ML IV SCH (10:45)
[2020-03-13] MEDS ORDERED: Dexamethasone 4 MG/ML SDV IVPUSH ONE (11:47)
== END 2020-03-13 12:43 | disposition home or self-care (01) ==
LOC: JD.ED 09:58
DX: R07.89 Other chest pain (principal); Z88.1 Allergy status to other antibiotic agents
CPT/HCPCS: 36415; 71045; 80053; 82553; 83735; 84484; 85025; 85379; 85730; 86140; 93005; 96361; 96374; 96375; 99285; J1100; J1170; J1885; J2060; J2765; J7042; 93010; 99283

== ENCOUNTER 2020-11-30 09:03 | Emergency (ER) | payer BC ==
[2020-11-30] MEDS ORDERED: Sodium Chloride 0.9% 10 ML Syringe FLUSH PRN (09:33)
[2020-11-30] MEDS ORDERED: LORazepam 2 MG/ML SDV IVPUSH ONE ×2 (09:33→11:07)
[2020-11-30] MEDS ORDERED: Sodium Chloride 0.9% 1,000 ML IV SCH (09:45)
--- NOTE | 2020-11-30 09:53 | EDM.PDOC ---
ED HPI GENERAL MEDICAL PROBLEM - General Chief Complaint: Neurological Problem Stated Complaint: LT SIDE TINGLING Time Seen by Provider: 11/30/20 09:21 Source of Information: Reports: Patient, RN Notes Reviewed - History of Present Illness INITIAL COMMENTS - FREE TEXT/NARRATIVE: 55 yr old female with onset of R hand and wrist numbness yesterday morning about 24 hrs ago that she had for most of the day. This morning for about the past 2 hrs her L hand and arm "feels numb" she feels that her L arm is "weak", Has some numbness and tingling of L Leg and perioral at time of exam as well. Has not felt well for the last 4 days with increased cough, chills, generalized achiness and fatigue. Did have a rapid covid screen yesterday and that was negative. No hx of Htn, CAD, diabetes or stroke that she is aware of. She did have exposure to friend who had early covid about 5 days ago. The friend tested positive 2 days later. - Related Data Allergies Allergy/AdvReac Type Severity Reaction Status Date / Time amoxicillin Allergy Hives Verified 11/30/20 09:29 Home Meds: Home Meds Albuterol [Proventil HFA] 2 puff INH Q4H PRN #1 inhaler 12/21/19 [Rx] Azithromycin [Zithromax] 250 mg PO DAILY #6 tab 12/21/19 [Rx] Codeine/Promethazine [Phenergan with Codeine] 5 - 10 ml PO Q6HR PRN #300 ml 12/21/19 [Rx] Diclofenac Sodium [Voltaren] 50 mg PO TID #24 tab.ec 03/13/20 [Rx] Gabapentin [Neurontin] 300 mg PO BEDTIME #7 cap 03/13/20 [Rx] oxyCODONE HCl/Acetaminophen [Percocet 5-325 mg Tablet] 1 - 2 each PO Q4H PRN #14 tablet 03/13/20 [Rx] predniSONE [Prednisone] 20 mg PO BID #12 tablet 03/13/20 [Rx] Past Medical History - Past Health History Medical/Surgical History: Denies Medical/Surgical History Cardiovascular History: Reports: Other (See Below) Other Cardiovascular History: fluid around heart and inflammed. 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: - Infectious Disease History Infectious Disease History: Reports: Chicken Pox, Measles, Mumps - Past Surgical History GI Surgical History: Reports: Appendectomy Female Surgical History: Reports: Section, Oophorectomy Social & Family History - Family History Family Medical History: No Pertinent Family History - Tobacco Use Tobacco Use Status *Q: Never Tobacco User - Caffeine Use Caffeine Use: Reports: Soda - Recreational Drug Use Recreational Drug Use: No - Living Situation & Occupation Living situation: Reports: Occupation: Employed ED ROS GENERAL - Review of Systems Review Of Systems: See Below Constitutional: Reports: Chills. Denies: Fever, Diaphoresis HEENT: Reports: No Symptoms Respiratory: Reports: Shortness of Breath, Cough Cardiovascular: Denies: Chest Pain GI/Abdominal: Denies: Abdominal Pain, Diarrhea, Nausea, Vomiting Musculoskeletal: Reports: Other (generalized achiness) Skin: Denies: Rash Neurological: Reports: Headache ED EXAM, NEURO - Physical Exam Exam: See Below Exam Limited By: Other (pt very anxious) Eye Exam: Bilateral Eye: PERRL Throat/Mouth: Normal Inspection Head Exam: Atraumatic. No: Facial Swelling Respiratory/Chest: Respiratory Distress (moderate tachypnea) Cardiovascular: Regular Rate, Rhythm GI/Abdominal: Soft, Non-Tender Neurological: Alert, Oriented x 3, Other (No facial droop, L hand grasp and L finger to nose "slow and weak" compared to the right but question equal effort. No Neurologic drift upper extremities while counting to 10. ) Extremities: Normal Inspection. No: Pedal Edema, Leg Pain, Redness Psychiatric: Anxious Skin Exam: Warm, Dry, Normal Color #1 Interpretation EKG Date: 11/30/20 Rhythm: NSR [place]: Normal P-Wave: Present QRS: Other (Q waves V2) ST-T: Other (T wave inversion AVL, no st elevation or depression) Course - Vital Signs Last Recorded V/S: Last Vital Signs Temp 97.7 F 11/30/20 09:23 Pulse 82 11/30/20 12:36 Resp 16 11/30/20 12:36 BP 142/88 H 11/30/20 12:36 Pulse Ox 99 11/30/20 12:36 - Orders/Labs/Meds Orders: Active Orders 24 hr Category Date Time Status Peripheral IV Insertion Adult [OM.PC] Stat Oth 11/30/20 09:33 Ordered Labs: Laboratory Tests 11/30/20 11/30/20 11/30/20 Range/Units 09:24 09:35 09:45 WBC (3.98-10.04) K/mm3 RBC (3.98-5.22) M/mm3 Hgb (11.2-15.7) gm/dl Hct (34.1-44.9) % MCV (79.4-94.8) fl MCH (25.6-32.2) pg MCHC (32.2-35.5) g/dl RDW Std Deviation (36.4-46.3) fL Plt Count (182-369) K/mm3 MPV (9.4-12.3) fl Neut % (Auto) (34.0-71.1) % Lymph % (Auto) (19.3-51.7) % [place] % (Auto) (4.7-12.5) % Eos % (Auto) (0.7-5.8) Baso % (Auto) (0.1-1.2) % Neut # (Auto) (1.56-6.13) K/mm3 Lymph # (Auto) (1.18-3.74) K/mm3 [place] # (Auto) (0.24-0.36) K/mm3 Eos # (Auto) (0.04-0.36) K/mm3 Baso # (Auto) (0.01-0.08) K/mm3 Sodium (136-145) mEq/L Potassium (3.5-5.1) mEq/L Chloride (98-107) mEq/L Carbon Dioxide (21-32) mEq/L Anion Gap (5-15) BUN (7-18) mg/dL Creatinine (0.55-1.02) mg/dL Est Cr Clr Drug Dosing mL/min Estimated GFR (MDRD) (>60) mL/min BUN/Creatinine Ratio (14-18) Glucose (74-106) mg/dL POC Glucose 91 (70-105) mg/dL Calcium (8.5-10.1) mg/dL Total Bilirubin (0.2-1.0) mg/dL AST (15-37) U/L ALT (14-59) U/L Alkaline Phosphatase (46-116) U/L C-Reactive Protein <0.2 (<1.0) mg/dL Total Protein (6.4-8.2) g/dl Albumin (3.4-5.0) g/dl Globulin gm/dL Albumin/Globulin Ratio (1-2) SARS-CoV-2 RNA (PHYLLIS) Negative (NEGATIVE) 11/30/20 11/30/20 Range/Units 09:45 09:45 WBC 4.50 (3.98-10.04) K/mm3 RBC 5.21 (3.98-5.22) M/mm3 Hgb 14.5 (11.2-15.7) gm/dl Hct 44.5 (34.1-44.9) % MCV 85.4 (79.4-94.8) fl MCH 27.8 (25.6-32.2) pg MCHC 32.6 (32.2-35.5) g/dl RDW Std Deviation 43.3 (36.4-46.3) fL Plt Count 321 (182-369) K/mm3 MPV 10.5 (9.4-12.3) fl Neut % (Auto) 65.9 (34.0-71.1) % Lymph % (Auto) 18.7 L (19.3-51.7) % [place] % (Auto) 13.6 H (4.7-12.5) % Eos % (Auto) 0.7 (0.7-5.8) Baso % (Auto) 0.9 (0.1-1.2) % Neut # (Auto) 2.97 (1.56-6.13) K/mm3 Lymph # (Auto) 0.84 L (1.18-3.74) K/mm3 [place] # (Auto) 0.61 H (0.24-0.36) K/mm3 Eos # (Auto) 0.03 L (0.04-0.36) K/mm3 Baso # (Auto) 0.04 (0.01-0.08) K/mm3 Sodium 145 (136-145) mEq/L Potassium 4.4 (3.5-5.1) mEq/L Chloride 107 (98-107) mEq/L Carbon Dioxide 24 (21-32) mEq/L Anion Gap 18.4 H (5-15) BUN 14 (7-18) mg/dL Creatinine 0.8 (0.55-1.02) mg/dL Est Cr Clr Drug Dosing 71.50 mL/min Estimated GFR (MDRD) > 60 (>60) mL/min BUN/Creatinine Ratio 17.5 (14-18) Glucose 79 (74-106) mg/dL POC Glucose (70-105) mg/dL Calcium 10.1 (8.5-10.1) mg/dL Total Bilirubin 0.8 (0.2-1.0) mg/dL AST 19 (15-37) U/L ALT 27 (14-59) U/L Alkaline Phosphatase 131 H (46-116) U/L C-Reactive Protein (<1.0) mg/dL Total Protein 7.4 (6.4-8.2) g/dl Albumin 4.3 (3.4-5.0) g/dl Globulin 3.1 gm/dL Albumin/Globulin Ratio 1.4 (1-2) SARS-CoV-2 RNA (PHYLLIS) (NEGATIVE) Meds: Medications Discontinued Medications Generic Name Dose Route Start Last Admin Trade Name Rileyq PRN Reason Stop Dose Admin Aspirin 324 mg 11/30/20 11:07 11/30/20 11:11 Aspirin PO 11/30/20 11:08 324 mg ONETIME ONE Administration Sodium Chloride 1,000 mls @ 999 mls/hr 11/30/20 09:45 11/30/20 10:17 Normal Saline IV 999 mls/hr ONETIME EVER Administration Lorazepam 0.5 mg 11/30/20 09:33 11/30/20 10:17 Ativan IVPUSH 11/30/20 09:34 0.5 mg ONETIME ONE Administration Lorazepam 0.5 mg 11/30/20 11:07 11/30/20 11:09 Ativan IVPUSH 11/30/20 11:08 0.5 mg ONETIME ONE Administration Sodium Chloride 10 ml 11/30/20 09:33 11/30/20 10:17 Saline Flush FLUSH 10 ml ASDIRECTED PRN Administration Keep Vein Open - Re-Assessments/Exams Free Text/Narrative Re-Assessment/Exam: 11/30/20 11:09. labs have come back relatively nl, CXR nl, covid screen neg. She still has mild L dining host weakness compared to R but continues to appear not to be giving a good effort. Once again no neuro drift while counting to 10. Her paresthesias are better but still does have mild paresthesias fingers of L hand. Has mild upper mid abd pain and pain R upper leg that comes and goes. Have checked on MRI availability, they can do it now so will get that done. have ordered another 0.5 mg ativan IV, ASA 324 mg PO. 11/30/20 12:22 MRI also does not show stroke or other acute findings. Pt is more relaxed after ativan 0.5 mg IV times 2. Although this does not look and act like stroke or TIA I will have her start baby aspirin 81 mg daily. Discharge instr. as documented. Departure - Departure Time of Disposition: 12:25 Disposition: Home, Self-Care 01 Condition: Fair Clinical Impression: Paresthesias, Viral syndrome - Discharge Information Instructions: Paresthesia, [id number] Referrals: José Jose MD [Primary Care Provider] - Forms: ED Department Discharge Additional Instructions: Your covid screen today was normal as well. Your head CT and MRI did not show any sign of stroke. Drink plenty of water to maintain hydration. Eat regular meals and snacks. Continue current meds. Self Isolate for now as best you can. Get rechecked for covid again early next week. See Dr Souza in about 5 to 7 days, call for appt. If unable to see Dr Souza see one of the other clinic providers. Return to ED as needed if symptoms worsening in any way. Sepsis Event Note (ED) - Evaluation Sepsis Screening Result: No Definite Risk - Focused Exam Vital Signs: Vital Signs Temp Pulse Resp BP Pulse Ox 11/30/20 12:36 82 16 142/88 H 99 11/30/20 09:23 97.7 F 78 23 H 159/101 H 100 - My Orders Last 24 Hours: My Active Orders 11/30/20 09:33 Peripheral IV Insertion Adult [OM.PC] Stat - Assessment/Plan Last 24 Hours: My Active Orders 11/30/20 09:33 Peripheral IV Insertion Adult [OM.PC] Stat
--- NOTE | 2020-11-30 10:04 | CT ---
Head CT Technique: Multiple axial sections through the brain were obtained. Intravenous contrast was not utilized. Reconstructed coronal and sagittal images were obtained. Comparison: Prior head CT study of 11/29/13. Findings: Ventricles along with basal cisterns and sulci over the convexities appear within normal limits for the patient's age. No abnormal parenchymal densities are seen. No evidence of intracranial hemorrhage. No midline shift or mass-effect is appreciated. Bone window settings were reviewed. Visualized mastoid sinuses and paranasal sinuses show nothing acute. No acute calvarial abnormality is appreciated. Impression: 1. Nothing acute is appreciated on noncontrast head CT exam. 2. If patient's symptoms warrant further evaluation, MRI study could then be considered. Diagnostic code #1
--- NOTE | 2020-11-30 10:05 | CR ---
Chest: Portable view of the chest was obtained. Comparison: Prior chest x-ray of 03/13/20. Heart is felt to be slightly enlarged. Upper mediastinum is normal. Lungs are clear with no acute parenchymal change. No acute osseous finding is appreciated. Impression: 1. Heart size is believed to be slightly enlarged but accentuated from portable technique. 2. Nothing acute is seen on portable chest x-ray. Diagnostic code #2
[2020-11-30] MEDS ORDERED: Aspirin 81 MG Tab.Chew PO ONE (11:07)
--- NOTE | 2020-11-30 12:02 | MR ---
MRI brain Technique: T1 sagittal; T2, T2 FLAIR, T1 and diffusion axial; T1 coronal as well as gradient echo coronal. Comparison: Head CT study performed earlier on the same day as well as previous MRI brain of 11/29/13. Findings: Ventricles along with basal cisterns and sulci over the convexities are within normal limits for the patient's age. FLAIR sequence shows only very minimal areas of increased signal within the periventricular white matter which is stable from prior exam. No other abnormal parenchymal signal is seen. No acute diffusion abnormalities are appreciated. Normal signal void is seen within the major cerebral arteries within the skull base. No acute abnormality is seen within the mastoid sinuses or paranasal sinuses. Impression: 1. Small area of increased signal within the periventricular white matter which is stable from prior exam. 2. Nothing acute is seen on MRI study of the brain. No acute diffusion abnormalities are seen. Diagnostic code #2
[2020-11-30 12:37] VITALS: BP 142/88; PULSE 82
== END 2020-11-30 12:37 | disposition home or self-care (01) ==
LOC: JD.ED 09:03
DX: B34.9 Viral infection, unspecified (principal); R20.2 Paresthesia of skin; Z88.0 Allergy status to penicillin; Z79.899 Other long term (current) drug therapy; Z20.822 Contact with and (suspected) exposure to COVID-19
CPT/HCPCS: 36415; 70450; 70551; 71045; 80053; 82962; 85025; 86140; 87635; 93005; 96374; 96376; 99284; A9270; J2060; J7030; 93010; U0002

== ENCOUNTER 2021-05-29 08:37 | Emergency (ER) | payer BC ==
[2021-05-29 08:54] VITALS: BP 151/96; PULSE 67
[2021-05-29] MEDS ORDERED: Sodium Chloride 0.9% 10 ML Syringe FLUSH PRN (09:12)
[2021-05-29] MEDS ORDERED: Aspirin 81 MG Tab.Chew PO ONE (09:12)
[2021-05-29] MEDS ORDERED: HYDROmorphone 1 MG/ML Syringe IVPUSH ONE (09:13)
--- NOTE | 2021-05-29 09:50 | CR ---
Chest: Frontal view of the chest was obtained. Comparison: Prior chest x-ray of 11/30/20 and 03/13/20. Heart size is slightly prominent. Upper mediastinum is normal. Lungs are clear with no acute parenchymal change. No acute osseous abnormality is appreciated. Impression: 1. Heart size is slightly enlarged but also accentuated by technique. 2. Nothing acute is otherwise seen on frontal chest x-ray. Diagnostic code #2
[2021-05-29] MEDS ORDERED: HYDROmorphone 0.5 MG/0.5 ML Syringe IVPUSH ONE (10:02)
--- NOTE | 2021-05-29 10:25 | EDM.PDOC ---
ED HPI GENERAL MEDICAL PROBLEM - General Chief Complaint: Chest Pain Stated Complaint: CHEST PAIN Time Seen by Provider: 05/29/21 08:57 Source of Information: Reports: Patient History Limitations: Reports: No Limitations - History of Present Illness INITIAL COMMENTS - FREE TEXT/NARRATIVE: The patient presents with right sided chest pain, right arm and leg pain and shortness of breath. This started yesterday. She does not recall injuring her arm or leg. She has some shortness of breath with it at times. She did have an NM with stents a year ago. She has no fever, chills, cough, abdominal pain, nausea or vomiting. She had tingling to her hands but no numbness or weakness. Onset: Gradual Duration: Day(s): Location: Reports: Chest, Upper Extremity, Right, Lower Extremity, Right Quality: Reports: Sharp Severity: Moderate Improves with: Reports: Immobilization Worsens with: Reports: Movement Context: Denies: Trauma Associated Symptoms: Reports: Chest Pain, Shortness of Breath. Denies: Cough, Fever/Chills, Headaches, Nausea/Vomiting Chest Pain Score (Numeric/FACES): 10 - Related Data Allergies Allergy/AdvReac Type Severity Reaction Status Date / Time amoxicillin Allergy Hives Verified 05/29/21 08:54 Home Meds: Home Meds Albuterol [Proventil HFA] 2 puff INH Q4H PRN #1 inhaler 12/21/19 [Rx] Azithromycin [Zithromax] 250 mg PO DAILY #6 tab 12/21/19 [Rx] Codeine/Promethazine [Phenergan with Codeine] 5 - 10 ml PO Q6HR PRN #300 ml 12/21/19 [Rx] Diclofenac Sodium [Voltaren] 50 mg PO TID #24 tab.ec 03/13/20 [Rx] Gabapentin [Neurontin] 300 mg PO BEDTIME #7 cap 03/13/20 [Rx] oxyCODONE HCl/Acetaminophen [Percocet 5-325 mg Tablet] 1 - 2 each PO Q4H PRN #14 tablet 03/13/20 [Rx] predniSONE [Prednisone] 20 mg PO BID #12 tablet 03/13/20 [Rx] Hydrocodone/Acetaminophen [Hydrocodone-Acetamin 5-325 mg] 1 - 2 each PO Q6H PRN #10 tablet 05/29/21 [Rx] Past Medical History - Past Health History Medical/Surgical History: Denies Medical/Surgical History Cardiovascular History: Reports: Other (See Below) Other Cardiovascular History: fluid around heart and inflammed. 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: - Infectious Disease History Infectious Disease History: Reports: Chicken Pox, Measles, Mumps - Past Surgical History GI Surgical History: Reports: Appendectomy Female Surgical History: Reports: Section, Oophorectomy Social & Family History - Family History Family Medical History: No Pertinent Family History - Caffeine Use Caffeine Use: Reports: Soda - Living Situation & Occupation Living situation: Reports: Occupation: Employed ED ROS GENERAL - Review of Systems Review Of Systems: See Below Constitutional: Reports: No Symptoms HEENT: Reports: No Symptoms Respiratory: Reports: Shortness of Breath. Denies: Cough Cardiovascular: Reports: Chest Pain Endocrine: Reports: No Symptoms GI/Abdominal: Reports: No Symptoms : Reports: No Symptoms Musculoskeletal: Reports: Other (Right arm and right leg pain) ED EXAM, GENERAL - Physical Exam Exam: See Below Exam Limited By: No Limitations General Appearance: Alert, No Apparent Distress Ears: Normal External Exam Nose: Normal Inspection Head: Atraumatic, Normocephalic Neck: Normal Inspection, Supple, Non-Tender Respiratory/Chest: No Respiratory Distress, Lungs Clear, Normal Breath Sounds Cardiovascular: Regular Rate, Rhythm, No Edema, No Murmur, Other (Pain upon palpation to the right chest) GI/Abdominal: Soft, Non-Tender, No Organomegaly, No Mass Back Exam: Normal Inspection Extremities: Other (Pain upon palpation to the right upper arm and right thigh. Good sensation and pulses distally.) #1 Interpretation EKG Date: 05/29/21 Time: 08:49 Rhythm: NSR Rate (Beats/Min): 69 [place]: Normal P-Wave: Present QRS: Normal ST-T: Normal QT: Normal EKG Interpretation Comments: Q waves in the anterior leads Course - Vital Signs Last Recorded V/S: Last Vital Signs Temp 96.9 F 05/29/21 08:48 Pulse 67 05/29/21 08:48 Resp 18 05/29/21 08:48 BP 151/96 H 05/29/21 08:48 Pulse Ox 100 05/29/21 08:48 - Orders/Labs/Meds Orders: Active Orders 24 hr Category Date Time Status Cardiac Monitoring [RC] . DIRECTED Care 05/29/21 09:12 Active EKG Documentation Completion [RC] STAT Care 05/29/21 09:12 Active Oxygen Therapy [RC] PRN Care 05/29/21 09:12 Active Peripheral IV Care [RC] . DIRECTED Care 05/29/21 09:12 Active Sodium Chloride 0.9% [Saline Flush] Med 05/29/21 09:12 Active 10 ml FLUSH ASDIRECTED PRN Peripheral IV Insertion Adult [OM.PC] Stat Oth 05/29/21 09:12 Ordered Medication Orders Sodium Chloride (Sodium Chloride 0.9% 10 Ml Syringe) 10 ml FLUSH ASDIRECTED PRN PRN Reason: Keep Vein Open Last Admin: 05/29/21 09:31 Dose: 10 ml Documented by: ZO Labs: Laboratory Tests 05/29/21 05/29/21 05/29/21 Range/Units 09:00 09:00 09:00 WBC 5.61 (3.98-10.04) K/mm3 RBC 4.91 (3.98-5.22) M/mm3 Hgb 13.9 (11.2-15.7) gm/dl Hct 41.7 (34.1-44.9) % MCV 84.9 (79.4-94.8) fl MCH 28.3 (25.6-32.2) pg MCHC 33.3 (32.2-35.5) g/dl RDW Std Deviation 43.0 (36.4-46.3) fL Plt Count 365 (182-369) K/mm3 MPV 10.4 (9.4-12.3) fl Neut % (Auto) 51.6 (34.0-71.1) % Lymph % (Auto) 39.2 (19.3-51.7) % [place] % (Auto) 7.8 (4.7-12.5) % Eos % (Auto) 0.7 (0.7-5.8) Baso % (Auto) 0.5 (0.1-1.2) % Neut # (Auto) 2.89 (1.56-6.13) K/mm3 Lymph # (Auto) 2.20 (1.18-3.74) K/mm3 [place] # (Auto) 0.44 H (0.24-0.36) K/mm3 Eos # (Auto) 0.04 (0.04-0.36) K/mm3 Baso # (Auto) 0.03 (0.01-0.08) K/mm3 D-Dimer, Quantitative 0.21 (0.19-0.50) mg/L Sodium 142 (136-145) mEq/L Potassium 3.7 (3.5-5.1) mEq/L Chloride 107 (98-107) mEq/L Carbon Dioxide 24 (21-32) mEq/L Anion Gap 14.7 (5-15) BUN 11 (7-18) mg/dL Creatinine 0.8 (0.55-1.02) mg/dL Est Cr Clr Drug Dosing 64.95 mL/min Estimated GFR (MDRD) > 60 (>60) mL/min BUN/Creatinine Ratio 13.8 L (14-18) Glucose 85 (70-99) mg/dL Calcium 9.4 (8.5-10.1) mg/dL Total Bilirubin 1.0 (0.2-1.0) mg/dL AST 16 (15-37) U/L ALT 28 (14-59) U/L Alkaline Phosphatase 121 H (46-116) U/L Troponin I < 0.017 (0.00-0.056) ng/mL Total Protein 7.4 (6.4-8.2) g/dl Albumin 4.0 (3.4-5.0) g/dl Globulin 3.4 gm/dL Albumin/Globulin Ratio 1.2 (1-2) SARS-CoV-2 RNA (PHYLLIS) (NEGATIVE) 05/29/21 Range/Units 10:37 WBC (3.98-10.04) K/mm3 RBC (3.98-5.22) M/mm3 Hgb (11.2-15.7) gm/dl Hct (34.1-44.9) % MCV (79.4-94.8) fl MCH (25.6-32.2) pg MCHC (32.2-35.5) g/dl RDW Std Deviation (36.4-46.3) fL Plt Count (182-369) K/mm3 MPV (9.4-12.3) fl Neut % (Auto) (34.0-71.1) % Lymph % (Auto) (19.3-51.7) % [place] % (Auto) (4.7-12.5) % Eos % (Auto) (0.7-5.8) Baso % (Auto) (0.1-1.2) % Neut # (Auto) (1.56-6.13) K/mm3 Lymph # (Auto) (1.18-3.74) K/mm3 [place] # (Auto) (0.24-0.36) K/mm3 Eos # (Auto) (0.04-0.36) K/mm3 Baso # (Auto) (0.01-0.08) K/mm3 D-Dimer, Quantitative (0.19-0.50) mg/L Sodium (136-145) mEq/L Potassium (3.5-5.1) mEq/L Chloride (98-107) mEq/L Carbon Dioxide (21-32) mEq/L Anion Gap (5-15) BUN (7-18) mg/dL Creatinine (0.55-1.02) mg/dL Est Cr Clr Drug Dosing mL/min Estimated GFR (MDRD) (>60) mL/min BUN/Creatinine Ratio (14-18) Glucose (70-99) mg/dL Calcium (8.5-10.1) mg/dL Total Bilirubin (0.2-1.0) mg/dL AST (15-37) U/L ALT (14-59) U/L Alkaline Phosphatase (46-116) U/L Troponin I (0.00-0.056) ng/mL Total Protein (6.4-8.2) g/dl Albumin (3.4-5.0) g/dl Globulin gm/dL Albumin/Globulin Ratio (1-2) SARS-CoV-2 RNA (PHYLLIS) Negative (NEGATIVE) Meds: Medications Generic Name Dose Route Start Last Admin Trade Name Freq PRN Reason Stop Dose Admin Sodium Chloride 10 ml 05/29/21 09:12 05/29/21 09:31 Sodium Chloride 0.9% 10 Ml Syringe FLUSH 10 ml ASDIRECTED PRN Administration Keep Vein Open Discontinued Medications Generic Name Dose Route Start Last Admin Trade Name Freq PRN Reason Stop Dose Admin Aspirin 324 mg 05/29/21 09:12 05/29/21 09:31 Aspirin 81 Mg Tab.Chew PO 05/29/21 09:13 324 mg ONETIME ONE Administration Hydromorphone HCl 1 mg 05/29/21 09:13 05/29/21 09:31 Hydromorphone 1 Mg/Ml Syringe IVPUSH 05/29/21 09:14 1 mg ONETIME ONE Administration Hydromorphone HCl 0.5 mg 05/29/21 10:02 05/29/21 10:34 Hydromorphone 0.5 Mg/0.5 Ml Syringe IVPUSH 05/29/21 10:03 0.5 mg ONETIME ONE Administration - Re-Assessments/Exams Free Text/Narrative Re-Assessment/Exam: 05/29/21 10:54 I ordered an IV saline lock, aspirin, dilaudid 1mg IV, EKG, CXR and labs. Her EKG shows a NSR with no acute changes. Her CXR looks good. Her CBC and CMP look good. Her D-dimer is negative. Her troponin is negative. I have also added a CT of her head and that looks good. I have also ordered a COVID test. 05/29/21 11:40 The COVID is negative. She feels a little better. Departure - Departure Time of Disposition: 11:45 Disposition: Home, Self-Care 01 Condition: Good Clinical Impression: Chest wall pain, Right arm pain, Right leg pain Prescriptions: Hydrocodone/Acetaminophen [Hydrocodone-Acetamin 5-325 mg] 1 - 2 each PO Q6H PRN #10 tablet PRN Reason: Pain Referrals: José Jose MD [Primary Care Provider] - 1 Week Forms: ED Department Discharge, ED Return to Work/School Form Additional Instructions: Go home and rest. Take tylenol or motrin as needed for pain. If that does not work, try the hydrocodone. Follow up with your provider within a week. Please return if you are worse. Sepsis Event Note (ED) - Focused Exam Vital Signs: Vital Signs Temp Pulse Resp BP Pulse Ox 05/29/21 08:48 96.9 F 67 18 151/96 H 100 - My Orders Last 24 Hours: My Active Orders 05/29/21 09:12 Cardiac Monitoring [RC] . DIRECTED EKG Documentation Completion [RC] STAT Oxygen Therapy [RC] PRN Peripheral IV Care [RC] . DIRECTED Sodium Chloride 0.9% [Saline Flush] 10 ml FLUSH ASDIRECTED PRN Peripheral IV Insertion Adult [OM.PC] Stat - Assessment/Plan Last 24 Hours: My Active Orders 05/29/21 09:12 Cardiac Monitoring [RC] . DIRECTED EKG Documentation Completion [RC] STAT Oxygen Therapy [RC] PRN Peripheral IV Care [RC] . DIRECTED Sodium Chloride 0.9% [Saline Flush] 10 ml FLUSH ASDIRECTED PRN Peripheral IV Insertion Adult [OM.PC] Stat
--- NOTE | 2021-05-29 10:40 | CT ---
Head CT Technique: Multiple axial sections were obtained through the brain. Intravenous contrast was not utilized. Reconstructed coronal and sagittal images were obtained. Comparison: Prior head CT study and brain MRI performed on 11/30/20. Findings: Ventricles along with basal cisterns and sulci over the convexities are within normal limits for the patient's age. No abnormal parenchymal densities are seen. No midline shift or mass-effect is seen. Bone window settings were reviewed. Visualized mastoid sinuses shows minimal mucosal thickening within the inferior left mastoid sinus. Other portions of the mastoid sinuses and visualized paranasal sinuses are clear. No acute calvarial abnormality is appreciated. Small soft tissue finding is seen off the left anterior scalp believed to be stable. Impression: 1. Findings which are felt to be incidental as noted above. 2. No acute intracranial abnormality is seen. Diagnostic code #2
== END 2021-05-29 12:40 | disposition home or self-care (01) ==
LOC: JD.ED 08:37
DX: R07.89 Other chest pain (principal); M79.601 Pain in right arm; M79.604 Pain in right leg; I25.2 Old myocardial infarction; Z95.5 Presence of coronary angioplasty implant and graft; Z88.0 Allergy status to penicillin; Z79.899 Other long term (current) drug therapy; Z20.822 Contact with and (suspected) exposure to COVID-19
CPT/HCPCS: 36415; 70450; 70450-26; 71045; 71045-26; 80053; 84484; 85025; 85379; 93005; 93010; 96374; 96376; 99284; 99285-25; A9270-GY; J1170; U0002

== ENCOUNTER 2022-01-28 08:00 | Emergency (ER) | payer BC ==
[2022-01-28] MEDS ORDERED: Sodium Chloride 0.9% 10 ML Syringe FLUSH PRN (08:11)
[2022-01-28] MEDS ORDERED: Sodium Chloride 0.9% 1,000 ML IV SCH (08:15)
[2022-01-28] MEDS: Nitroglycerin 0.4 MG Tab.SL SL PRN ×2 (08:27→08:40)
[2022-01-28] MEDS ORDERED: HYDROmorphone 1 MG/ML Syringe IVPUSH ONE ×2 (09:07→09:41)
[2022-01-28] MEDS ORDERED: Pantoprazole 40 MG Vial IVPUSH ONE (09:40)
[2022-01-28] MEDS ORDERED: Alum Hydrox/Mag Hydrox/Simeth 30 ML, Lidocaine 2% 15 ML PO ONE ×2 (10:48)
[2022-01-28] MEDS ORDERED: Aspirin 81 MG Tab.Chew PO ONE (10:51)
[2022-01-28 13:17] VITALS: BP 134/81; PULSE 62
== END 2022-01-28 13:10 | disposition home or self-care (01) ==
LOC: JD.ED 08:00
DX: R07.2 Precordial pain (principal); K21.9 Gastro-esophageal reflux disease without esophagitis; Z88.0 Allergy status to penicillin; Z79.899 Other long term (current) drug therapy
CPT/HCPCS: 36415; 71045; 80053; 84484; 85025; 85379; 93005; 96374; 96375; 96376; 99285; A9270; C9113; J1170; J3490; J7030

== ENCOUNTER 2022-01-30 11:45 | Emergency (ER) | payer BC ==
[2022-01-30 11:57] VITALS: BP 148/73; PULSE 72
[2022-01-30] MEDS ORDERED: Sodium Chloride 0.9% 10 ML Syringe FLUSH PRN (12:19)
[2022-01-30] MEDS ORDERED: Ketorolac 30 MG/ML SDV IVPUSH ONE (12:20)
== END 2022-01-30 14:15 | disposition left against medical advice (07) ==
LOC: JD.ED 11:45
DX: R07.89 Other chest pain (principal); K21.9 Gastro-esophageal reflux disease without esophagitis; Z88.0 Allergy status to penicillin; Z79.899 Other long term (current) drug therapy
CPT/HCPCS: 71045; 71045-26; 93010; 99283; 99285-25

== ENCOUNTER 2024-07-26 08:44 | Emergency (ER) | payer BC ==
[2024-07-26] MEDS ORDERED: Sodium Chloride 0.9% 10 ML Syringe FLUSH PRN (08:53)
[2024-07-26 09:15] LABS: BASOPHILS ABSOLUTE AUTO 0.1 K/mm3 (0.0-0.2); BASOPHILS PERCENT AUTO 0.5 % (0.0-1.0); EOSINOPHILS PERCENT AUTO 0.1 % (0.0-6.0); HEMATOCRIT 42.2 % (37.0-47.0); IMMATURE GRAN ABSOLUTE AUTO 0.03 K/mm3 (0.00-0.05); IMMATURE GRAN PERCENT AUTO 0.3 % (0.0-0.4); LYMPHOCYTES ABSOLUTE AUTO 1.6 K/mm3 (1.0-4.8); LYMPHOCYTES PERCENT AUTO 16.3 % (24.0-44.0); MEAN CORPUSCULAR HEMOGLOBIN 28.5 pg (28.0-32.0); MEAN CORPUSCULAR HGB CONC 33.2 g/dl (32.0-36.0); MEAN CORPUSCULAR VOLUME 85.8 fl (83.0-99.0); MEAN PLATELET VOLUME 10.4 fl (9.4-12.3); MONOCYTES ABSOLUTE AUTO 0.5 K/mm3 (0.0-0.8); MONOCYTES PERCENT AUTO 4.9 % (0.0-8.0); NEUTROPHILS ABSOLUTE AUTO 7.5 K/mm3 (1.8-7.7); NEUTROPHILS PERCENT AUTO 77.9 % (41.0-71.0); PLATELET COUNT,PLT 349 K/mm3 (150-400); RED BLOOD CELL COUNT 4.92 M/mm3 (4.10-5.30); WHITE BLOOD CELL COUNT,WBC 9.65 K/mm3 (3.9-11.3)
[2024-07-26] MEDS: Aspirin 81 MG Tab.Chew PO ONE (09:43)
[2024-07-26 09:57] LABS: A/G RATIO 1.1 (1-2); ALANINE AMINOTRANSFERASE,ALT 12 U/L (14-59); ALBUMIN 3.8 g/dl (3.4-5.0); ALKALINE PHOSPHATASE 135 U/L (46-116); ANION GAP 17.1 (5-15); ASPARTATE AMNIOTRANSFERASE,AST 10 U/L (15-37); BILIRUBIN TOTAL 0.4 mg/dL (0.2-1.0); BLOOD UREA NITROGEN,BUN 22 mg/dL (7-18); CALCIUM 9.4 mg/dL (8.5-10.1); CARBON DIOXIDE,CO2 23 mEq/L (21-32); CHLORIDE,CL 106 mEq/L (98-107); CREATININE 1.1 mg/dL (0.55-1.02); EST CRCL DRUG DOSING (CG) 49.55 mL/min; ESTIMATED GFR 58 mL/min (>60); GLUCOSE RANDOM 104 mg/dL (70-99); POTASSIUM,K 4.1 mEq/L (3.5-5.1); PROTEIN TOTAL,TP 7.3 g/dl (6.4-8.2); SODIUM,NA 142 mEq/L (136-145)
[2024-07-26 10:02] LABS: TROPONIN I HIGH SENSITIVITY < 4 pg/mL (<=51)
[2024-07-26 14:15] VITALS: PULSE 69
== END 2024-07-26 14:15 | disposition home or self-care (01) ==
LOC: JD.ED 08:44
DX: R07.9 Chest pain, unspecified (principal); I10 Essential (primary) hypertension; K21.9 Gastro-esophageal reflux disease without esophagitis; Z90.49 Acquired absence of other specified parts of digestive tract; Z88.0 Allergy status to penicillin; Z79.2 Long term (current) use of antibiotics; Z79.51 Long term (current) use of inhaled steroids; Z79.52 Long term (current) use of systemic steroids; Z79.891 Long term (current) use of opiate analgesic; Z79.899 Other long term (current) drug therapy
CPT/HCPCS: 36415; 71045; 80053; 83690; 84484; 85025; 93005; 99285; A9270